=== PATIENT | male | born 1960 | race Caucasian/White ===

== ENCOUNTER 2022-11-20 18:28 | Inpatient (IN) | payer SELFPAY ==
[2022-11-20] VITALS (7 sets, daily range): BP systolic 154–247; BP diastolic 85–126; PULSE 114–134; RESP 4–24; TEMP 37.2–37.7; O2SAT 92–94; BMI 32.8; BMI 31.1
[2022-11-20] MEDS: Ipratropium/Albuterol Sulfate 3 ML AMPUL.NEB INHALATION (19:00)
--- NOTE | 2022-11-20 19:00 | EKG12_ITS ---
Test Reason : DYSRHYTHMIA Blood Pressure : / mmHG Vent. Rate : 121 BPM Atrial Rate : 121 BPM P-R Int : 138 ms QRS Dur : 086 ms QT Int : 312 ms P-R-T Axes : 071 053 059 degrees QTc Int : 443 ms Sinus tachycardia Otherwise normal ECG Confirmed by PETER MARRERO, EJ ([id number]), sports editor PAYAL LEMON ([id number]) on 11/24/2022 11:01:09 AM Referred By: CARSON Confirmed By:RUBY GREEN MD
[2022-11-20] MEDS: Albuterol 2.5 MG/3 ML VIAL.NEB. INHALATION ×2 (19:09→19:20)
[2022-11-20 19:13] LABS: Absolute Lymphocyte Count 0.77 X10^3/uL (0.83-4.51); Absolute Neutrophil Count 4.3 X10^3/uL (2.0-7.7); Basophil# 0.03 X10^3/uL; Basophil% 0.5 % (0-1); Eosinophil# 0.05 X10^3/uL; Eosinophils% 0.9 % (0-5); Hematocrit 43.7 % (40-54); Hemoglobin 14.3 g/dL (13.0-16.5); Lymphocyte # 0.77 X10^3/ul (0.83-4.51); Lymphocyte % 13.4 % (19-41); Mean Corp Hgb Conc 32.7 g/dL (32-36); Mean Corpuscular Hgb 31.2 pg (27.0-32.0); Mean Corpuscular Volume 95.2 fL (80-94); Mean Platelet Vol. 9.6 fl (6.2-12.0); Monocyte# 0.53 X10^3/uL; Monocyte% 9.2 % (0-10); NRBC Flagged by Analyzer 0 % (0-5); Neutrophil # 4.33 X10^3/uL (2.7-7.7); Neutrophil % 75.5 % (47-70); Platelet Count 180 K/mm3 (150-450); RBC Distribution Width CV 13.6 % (11.6-14.6); RBC Distribution Width SD 47.8 fl (35.1-43.9); Red Blood Count 4.59 M/mm3 (4.6-6.2); White Blood Count 5.7 K/mm3 (4.4-11.0)
[2022-11-20] MEDS: MethylPREDNISolone 125 MG/2 ML Vial IV (19:25)
[2022-11-20 19:29] LABS: ALB/GLOB Ratio 1.1 RATIO (0.9-2.4); AST(SGOT) 22 U/L (15-37); Alanine Aminotransfer ALT/SGPT 22 U/L (16-61); Albumin, Serum 3.6 g/dL (3.2-5.0); Alkaline Phosphatase 57 U/L (45-117); Anion Gap 5 (5-15); BUN 10 mg/dL (7-18); BUN/Creat Ratio 11.8 RATIO (10-20); Calcium,Total 8.4 mg/dL (8.5-10.1); Chloride 101 mmol/L (98-107); Creatinine, Serum 0.85 mg/dL (0.70-1.30); EST Glomerular Filtration Rate 98 mL/min (>60); Est Glom Filt Rate - Afr Amer 119 mL/min (>60); Estimated Creatinine Clearance 92.42 ml/min; Globulin 3.2 g/dL (2.2-4.2); Glucose 98 mg/dL (74-106); Potassium 3.9 mmol/L (3.5-5.1); Protein, Total 6.8 g/dL (6.4-8.2); Sodium Level 136 mmol/L (136-145)
[2022-11-20 19:38] LABS: Lactic Acid 0.7 mmol/L (0.4-1.9)
--- NOTE | 2022-11-20 19:38 | RAD_ITS ---
STUDY: XR Chest 2 Views 11/20/2022 7:43 PM REASON FOR EXAM: Male, 62 years old. CHEST PAIN Fever, cough, wheezing, dyspnea COMPARISON: 05/22/2015 TECHNIQUE: XR Chest 2 Views FINDINGS: There is no demonstrated pleural abnormality. Normal heart size. Normal mediastinum. Normal suzan. Prominent appearing increased interstitial lung markings. Normal visualized pulmonary arteries. There is atherosclerotic calcification of the aortic arch with tortuosity. There are diffuse degenerative changes of the visualized thoracic spine. There is degenerative osteoarthritis of the bilateral shoulders. There is no demonstrated abnormality of the visualized soft tissue structures of the upper abdomen. RAD/Chest PA and Lateral IMPRESSION: There are no acute findings. Electronically Signed: Nadeem Jalloh MD at 20:06 EDT ,
--- NOTE | 2022-11-20 19:41 | CPS ---
x2 Albuterol given to pt. in ER as well
--- NOTE | 2022-11-20 21:51 | EDS_ITS ---
HPI History of Present Illness Chief Complaint: Shortness of Breath Detail of Chief Complaint: Shortness of breath, fevers, cough, wheezing and dyspnea on exertion Informant: patient, spouse/S.O. and EMS Onset/Context/Timing Onset: Days Context: gradual Timing: Continuous Quality: Positive for Dyspnea on exertion and Wheezing; Negative for Orthopnea or PND Current Severity: Mild Maximum Severity: Severe Worsened by: Exertion and Coughing Relieved by: Nothing Associated Symptoms cough, rhinorrhea, fever, chills and sweats; Negative for post nasal drip, ear pain, sore throat, clear sputum, white sputum or yellow sputum Chest Pain: Positive for None Narrative Narrative: Patient is a 62-year-old male who is noncompliant with any of his medications. He has a history of hypertension. He has not taken his hypertensive meds for 10 years. Patient stated that he stopped smoking a couple of weeks ago. He does report temperature documented 101.0 ?F. His pulse ox was 90 to 93% on room air. Paramedics for unknown reason and placed him on a nonrebreather. When he did present he did have labored breathing with use of accessory muscles. He appeared in obvious distress. He denies headache, visual, ocular auditory symptoms. He denies drainage from ears or ear pain. He denies chest pain, orthopnea, PND. He does report mild edema of his lower extremities. He denies history of congestive heart failure. He denies abdominal pain, nausea, vomiting or diarrhea. He denies black or maroon-colored stool. PE Risk Factors: Negative for Cancer, OCP + Smoking + > 35, Prior DVT or PE, Recent immobilization, Recent surgery or Recent travel Prior similar symptoms: Yes Recent Illness/Hospitalization: No PFSH PFSH Home Medications NK 11/20/22 [History Last Taken Unknown] Allergy/AdvReac Type Severity Reaction Status Date / Time No Known Allergies Allergy Verified 11/20/22 18:34 Social History (Updated 11/20/22 @ 21:[address] Christiano Scruggs MD) household members: spouse Smoking Status: Former smoker substance use type: does not use ROS ROS ED Constitutional Constitutional ED: Reports chills, fever(s) and sweats; Denies weight loss Eyes Eyes: Denies blurry vision, change in vision or diplopia ENT ENT ED: Reports rhinorrhea; Denies ear pain or sore throat Cardiovascular Cardiovascular: Denies chest pain, orthopnea, palpitations, paroxysmal nocturnal dyspnea or racing heartbeat Respiratory/Chest Respiratory/Chest: Reports cough, dyspnea and dyspnea on exertion; Denies orthopnea or paroxysmal nocturnal dyspnea Gastrointestinal Gastrointestinal: Denies abdominal pain, diarrhea, nausea or vomiting Genitourinary Genitourinary ED: Denies dysuria, hematuria or urinary frequency Musculoskeletal Musculoskeletal: Reports arthralgias and myalgias; Denies back pain or neck pain Integumentary Denies rash Neurologic Neurologic: Reports weakness; Denies headache(s) or paresthesias Psychiatric Psychiatric: Reports anxiety Endocrine Endocrinology: Denies cold intolerance or heat intolerance Hematologic/Lymphatic Hematologic/Lymphatic: Denies easy bleeding or easy bruising EXAM Physical Exam Const Vital Signs: 11/20/22 18:28 11/20/22 18:33 11/20/22 18:41 Temperature 100 F H 100 F H Temperature Source Temporal Temporal Pulse Rate 126 H 125 H Respiratory Rate 21 H 4 L Respiratory Effort Short of Breath Labored Respiratory Depth Normal Respiratory Pattern Tachypnea Blood Pressure 247/126 H 247/126 H Blood Pressure Mean 166 166 Pulse Ox 94 93 Oxygen Delivery Method Room Air Room Air Non-Rebreather 11/20/22 19:00 11/20/22 19:00 11/20/22 20:22 Temperature Temperature Source Pulse Rate 134 H 128 H Respiratory Rate 22 H 24 H 20 H Respiratory Effort Normal Non-Labored Short of Breath Respiratory Depth Shallow Respiratory Pattern Tachypnea Tachypnea Blood Pressure 176/92 H Blood Pressure Mean 120 Pulse Ox 92 93 Oxygen Delivery Method Room Air Room Air Positive well nourished, well developed and obese General Appearance ED: well developed; Negative for pallor Nutritional Appearance: obese HEENT Reports dry mucous membranes HEENT Narrative: Head is atraumatic normocephalic. Ears normal. Nares patent with slight drainage. Posterior pharynx out erythema or exudate. Uvula midline Mouth ED: Yes dry mucous membranes Mouth: dry mucous membranes Eyes PERRL and EOMs intact bilaterally General Eye ED: Negative for pale conjunctiva or scleral icterus Neck no lymphadenopathy, supple, no meningeal signs and no JVD Neck Narrative: Trachea is midline. There is no inspiratory expiratory stridor. Resp No normal respiratory effort and No clear to auscultation bilaterally Resp Narrative: There is increased expiratory phase. There is decreased movement of air. Auscultation: wheezes expiratory wheezes and throughout Cardio regular rhythm, S1 normal heart sound, S2 normal heart sound and no murmurs Rate: tachycardic GI non-tender, non-distended and no masses Auscultation: normoactive bowel sounds Palpation: soft Back/Spine no CVA tenderness Extremity normal to inspection Extremity Narrative: There is noted on his toes. He has palpable DP and PT pulse. There is no asymmetry, swelling, discoloration, leg vein distention, palpable cords or tenderness along the distribution of the deep venous system. General Extremety ED: Negative for tenderness or other findings General Extremity: Negative for other findings Neuro oriented x3, CN's II-XII intact bilaterally and no sensory deficits noted Sensorium / Orientation: alert Psych mental status grossly normal Skin no wounds and skin turgor normal General Skin Exam: Negative for jaundice or pallor MDM MDM MDM Narrative Medical decision making narrative: Differential diagnosis would include viral infection exacerbating COPD, pneumonia, heart failure due to hypertension that is been untreated. Because he has not taken his blood pressure medicine 10 years we will obtain blood work to assess for endorgan dysfunction. His initial blood pressure was 247/126. Without treatment and after treatment for his respiratory distress his blood pressure did improve to 176/92. Enalapril was ordered for the elevated blood pressure however his pressure came down on its own. There is no concern for pulmonary embolus. History is consistent with infectious process. History & Record Review Discussion w/independent historian: EMS personnel, Patient and Significant other Additional record(s) reviewed:: Prior inpatient record (Admitted for exacerbated COPD in 2014. He has not had no other ER visits or admissions.) and Prior ED visit Lab Data Attestation: I reviewed the patient's lab results. Lab results narrative: White count is normal at 5.7 with slight panel is unremarkable. Lactate is unremarkable. Hepatic profile is unremarkable. Labs: Laboratory Results - last 24 hr 11/20/22 11/20/22 11/20/22 18:35 18:35 18:35 WBC 5.7 RBC 4.59 L Hgb 14.3 Hct 43.7 MCV 95.2 H MCH 31.2 MCHC 32.7 RDW Std Deviation 47.8 H RDW Coeff of Adelso 13.6 Plt Count 180 MPV 9.6 Immature Gran % (Auto) 0.500 Neut % (Auto) 75.5 H Lymph % (Auto) 13.4 L Martin % (Auto) 9.2 Eos % (Auto) 0.9 Baso % (Auto) 0.5 Absolute Neuts (auto) 4.3 Absolute Lymphs (auto) 0.77 L Nucleated RBC % 0 Sodium 136 Potassium 3.9 Chloride 101 Carbon Dioxide 30.0 Anion Gap 5 BUN 10 Creatinine 0.85 Estim Creat Clear Calc 92.42 Est GFR (MDRD) Af Amer 119 Est GFR (MDRD) Non-Af 98 BUN/Creatinine Ratio 11.8 Glucose 98 Lactic Acid 0.7 Calcium 8.4 L Total Bilirubin 0.40 AST 22 ALT 22 Alkaline Phosphatase 57 Total Protein 6.8 Albumin 3.6 Globulin 3.2 Albumin/Globulin Ratio 1.1 Radiography Chest X-Ray - ED: 1 View and Read by ED Physician (Single view chest x-ray reveals chronic changes without evidence of infiltrate or effusion. Cardiac silhouette and size unremarkable. Perihilar regions unremarkable. Osseous structures are unremarkable. This was independent reviewed interpreted by me.) Diagnostic Testing: Clinical Impression(s) from Imaging Studies Chest X-Ray 11/20/22 19:38 IMPRESSION: There are no acute findings. Electronically Signed: Nadeem Jalloh MD at 20:06 EDT Reading Location ID and State: [facility] / [place] , Service support , Differential Diagnosis Chest pain/SOB: pulmonary embolism Reason(s) PE less likely: Positive for Other (Presentation of infectious process.), ACS ACS: Positive for EKG without ischemia and history not suggestive of ischemia pain and pneumothorax Reason(s) pneumothorax less likely: Positive for bilateral breath sounds and [employer] withhout PTX Treatment and Re-Evaluation :: Patient was treated with aerosols and steroids. Patient was reassessed at 2155. He is still tachycardic at 125 on the monitor. He still has significant expiratory wheezing with increased extra phase and decreased air movement. He feels much warmer than documented temperature. Temperature was rechecked and is still normal. When he was ambulated his O2 sat decreased to 89%. Will speak with the hospitalist for admission for exacerbation of COPD. Since he has colored sputum we will treat with oral an tibiotics. Discharge Plan Dx/Rx/DC Orders Clinical Impression: Acute exacerbation of chronic obstructive pulmonary disease, HTN (hypertension), Acute bronchospasm, Purulent bronchitis, Sinus tachycardia Disposition Disposition: Acute Care Hospital [facility]
--- NOTE | 2022-11-20 22:50 | HP.PCM.HOS_ITS ---
HPI - General General Date of Admission: 11/20/22 Date of Service: 11/20/22 Chief Complaint: Shortness of breath HPI Narrative PATIENCE RUST, is a 62 M with a significant history of hypertension; tobacco abuse (quit 2 weeks ago) and COPD who presents emergency department with 2-day history of progressively worsening shortness of breath. Patient's shortness of breath is at rest and is increased markedly with mild exertion. Associated with his symptoms is productive cough. Reportedly hiss sputum is thin. He is unable to expectorate much. Further patient has fatigue. He reports wheezes. His home temperature was 100.9 Fahrenheit. He reports chills. Reportedly when patient was ambulated at the ED his oxygen saturation dropped to 89%. [facility] Medical History COPD (chronic obstructive pulmonary disease) HTN (hypertension) Tobacco dependence Medical History no medical history Home Medications NK 11/20/22 [History Last Taken Unknown] Allergy/AdvReac Type Severity Reaction Status Date / Time No Known Allergies Allergy Verified 11/20/22 18:34 Family History Other Diabetes Hypertension Surgical History no surgical history no surgical history Social History household members: spouse Smoking Status: Former smoker substance use type: does not use ROS ROS Narrative Pertinent positives and pertinent negatives as noted in HPI. All other systems were reviewed and are negative Vital Signs Vital Signs Vital Signs: 11/20/22 18:28 11/20/22 18:33 11/20/22 18:41 Temperature 100 F H 100 F H Temperature Source Temporal Temporal Pulse Rate 126 H 125 H Respiratory Rate 21 H 4 L Respiratory Effort Short of Breath Labored Respiratory Depth Normal Respiratory Pattern Tachypnea Blood Pressure 247/126 H 247/126 H Blood Pressure Mean 166 166 Pulse Ox 94 93 Oxygen Delivery Method Room Air Room Air Non-Rebreather 11/20/22 19:00 11/20/22 19:00 11/20/22 20:22 Temperature Temperature Source Pulse Rate 134 H 128 H Respiratory Rate 22 H 24 H 20 H Respiratory Effort Normal Non-Labored Short of Breath Respiratory Depth Shallow Respiratory Pattern Tachypnea Tachypnea Blood Pressure 176/92 H Blood Pressure Mean 120 Pulse Ox 92 93 Oxygen Delivery Method Room Air Room Air 11/20/22 22:06 11/20/22 22:01 Temperature 99.8 F H Temperature Source Oral Pulse Rate 121 H Respiratory Rate 22 H Respiratory Effort Respiratory Depth Respiratory Pattern Blood Pressure 154/110 H Blood Pressure Mean 126 Pulse Ox 93 Oxygen Delivery Method Weight Weight: 100.9 kg Body Mass Index (BMI) 32.8 Physical Exam Narrative Physical exam: General: Well-nourished, well-developed. Head: Normocephalic, atraumatic, no tenderness Eyes: Vision is grossly intact. EOMI ENT, no trauma, moist mucous membranes, no rhinorrhea Neck: Nontender, No thyromegaly. CVS: Regular rate and rhythm. S1-S2 present. No murmur, gallop or rub. Respiratory : Tachypnea; diminished, chest wall nontender Abdomen: Soft, nontender, nondistended, normal bowel sounds, no masses : Deferred Back: Nontender, no CVA tenderness, no midline spinal tenderness, deformities, step-offs Extremities: Nontender full range of motion, no trauma Skin: Normal color, no trauma, abrasions Neuro: Alert, oriented, cranial nerves II through XII grossly intact. Psychiatry: Normal mood. Normal affect. Not depressed. Not anxious. Results Lab / Micro Data Result Diagrams: 11/20/22 18:35 11/20/22 18:35 Labs: Laboratory Results - last 24 hr 11/20/22 18:35: WBC 5.7, RBC 4.59 L, Hgb 14.3, Hct 43.7, MCV 95.2 H, MCH 31.2, MCHC 32.7, RDW Std Deviation 47.8 H, RDW Coeff of Adelso 13.6, Plt Count 180, MPV 9.6, Immature Gran % (Auto) 0.500, Neut % (Auto) 75.5 H, Lymph % (Auto) 13.4 L, Sunflower % (Auto) 9.2, Eos % (Auto) 0.9, Baso % (Auto) 0.5, Absolute Neuts (auto) 4.3, Absolute Lymphs (auto) 0.77 L, Nucleated RBC % 0 11/20/22 18:35: Sodium 136, Potassium 3.9, Chloride 101, Carbon Dioxide 30.0, Anion Gap 5, BUN 10, Creatinine 0.85, Estim Creat Clear Calc 92.42, Est GFR (MDRD) Af Amer 119, Est GFR (MDRD) Non-Af 98, BUN/Creatinine Ratio 11.8, Glucose 98, Calcium 8.4 L, Total Bilirubin 0.40, AST 22, ALT 22, Alkaline Phosphatase 57, Total Protein 6.8, Albumin 3.6, Globulin 3.2, Albumin/Globulin Ratio 1.1 11/20/22 18:35: Lactic Acid 0.7 Radiology Impression Chest X-Ray 11/20/22 19:38 IMPRESSION: There are no acute findings. Electronically Signed: Nadeem Jalloh MD at 20:06 EDT , Assessment & Plan Assessment/Plan (1) HTN (hypertension): (2) Tobacco dependence: (3) COPD (chronic obstructive pulmonary disease) with acute bronchitis: (4) Alcoholism: PLAN: Plan Acute COPD exacerbation with hypoxia Covid antigen and rapid influenza antigen negative Radiologist impression of chest x-ray: No acute findings. CXR independently was visualized and independently interpreted and I agree with radiologist interpretation. Scheduled DuoNeb Albuterol as needed Solu-Medrol ordered. With fever (temperature of 100.9 Fahrenheit at home and Tmax of 100 Fahrenheit at the ED) will start patient on azithromycin. We will check procalcitonin. White count of 7400 Monitor BMP and CBC Oxygen as needed ordered. Titrate. Hypertension Reportedly used to be on blood pressure medicine but stopped taking about 10 years ago due to insurance issues with job change. We will start patient on amlodipine. Trend blood pressures. Tobacco dependence Reportedly quit 2 weeks ago. Counseled Alcoholism Reportedly drinks heavily about 3 days in a week. Patient does not think that he will withdrawal if he does not drink in the hospital. Folic acid and thiamine ordered. CIWA protocol ordered. DVT prophylaxis Subcutaneous Lovenox ordered. Charges/Coding Visit Charges Inpatient E&M: 83634 Init Hosp L3
[2022-11-21] VITALS (12 sets, daily range): BP systolic 135–158; BP diastolic 86–97; PULSE 91–108; RESP 18–21; TEMP 36.7–37.1; O2SAT 82–96
[2022-11-21] MEDS: amLODIPine 10 MG Tablet PO ×2 (00:33→09:40)
[2022-11-21] MEDS: guaiFENesin 1,200 MG Tablet 1200 MG PO ×3 (00:33→20:51)
[2022-11-21] MEDS: Azithromycin 250 MG Tablet 500 MG PO ×2 (00:35→09:40)
[2022-11-21 02:44] LABS: Procalcitonin < 0.04 ng/mL (0.00-0.09)
[2022-11-21 04:36] LABS: Absolute Lymphocyte Count 0.34 X10^3/uL (0.83-4.51); Absolute Neutrophil Count 6.7 X10^3/uL (2.0-7.7); Basophil# 0.01 X10^3/uL; Basophil% 0.1 % (0-1); Hematocrit 43.2 % (40-54); Hemoglobin 14.2 g/dL (13.0-16.5); Lymphocyte # 0.34 X10^3/ul (0.83-4.51); Lymphocyte % 4.6 % (19-41); Mean Corp Hgb Conc 32.9 g/dL (32-36); Mean Corpuscular Hgb 31.6 pg (27.0-32.0); Mean Platelet Vol. 9.2 fl (6.2-12.0); Monocyte# 0.26 X10^3/uL; Monocyte% 3.5 % (0-10); NRBC Flagged by Analyzer 0 % (0-5); Neutrophil # 6.73 X10^3/uL (2.7-7.7); Neutrophil % 91.3 % (47-70); POSITIVE DIFFERENTIAL YES; Platelet Count 175 K/mm3 (150-450); RBC Distribution Width CV 13.6 % (11.6-14.6); RBC Distribution Width SD 48.3 fl (35.1-43.9); White Blood Count 7.4 K/mm3 (4.4-11.0)
[2022-11-21 04:56] LABS: Differential Indicated SCAN CRITERIA MET
[2022-11-21 05:03] LABS: Anion Gap 4 (5-15); BUN 10 mg/dL (7-18); BUN/Creat Ratio 12.1 RATIO (10-20); Calcium,Total 8.2 mg/dL (8.5-10.1); Chloride 101 mmol/L (98-107); Creatinine, Serum 0.82 mg/dL (0.70-1.30); EST Glomerular Filtration Rate 101 mL/min (>60); Est Glom Filt Rate - Afr Amer 122 mL/min (>60); Estimated Creatinine Clearance 98.92 ml/min; Glucose 159 mg/dL (74-106); Potassium 4.2 mmol/L (3.5-5.1); Sodium Level 133 mmol/L (136-145)
[2022-11-21 05:27] LABS: Differential Comment SCANNED
[2022-11-21] MEDS: Ipratropium/Albuterol Sulfate 3 ML AMPUL.NEB INHALATION ×3 (05:39→18:35)
[2022-11-21] MEDS: Folic Acid 1 MG Tablet PO (09:40)
[2022-11-21] MEDS: Enoxaparin 40 MG/0.4 ML Syringe SC (09:40)
[2022-11-21] MEDS: Thiamine Hydrochloride 100 MG Tablet PO (09:40)
--- NOTE | 2022-11-21 13:05 | CASEMGMT ---
RN?CM?PRODUCTION SUPERINTENDENT?CM?to room to meet with patient for initial transition planning/care coordination?assessment.?RN?CM?introduced self and role at [facility].? Pt voices understanding and consents to?assessment?at this time.? Pt resting in bed in no distress at this time.? Pt is A/O at this time and answers all questions appropriately.?? Care providers, pharmacy, and demographics verified/updated at this time. PCP: No PCP and no insurance. Claire MARTINS, made aware. Specialists: none Preferred Pharmacy: [facility] Retail Insurance: none. 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 Prescription Benefit:?none Living Will/HPOA:? Pt does not currently have LW/HCPOA and interested in completing. Claire MARTINS, made aware. Pt made aware, if SW unable to meet w/him prior to discharge, that AD can be completed as an OP w/SW. He voices understanding. LNOK: Pt has 2 daughters, Adriane Nielsen and Chloe Alan. Pt lives w/girlfriend, Marisol. Living Arrangements: Pt lives w/GF, Marisol in mobile home w/5 steps to enter. Pt states he does okay w/the stairs. Pt states he is indep w/ADL's and IADL's. Transportation:?Pt states drives self and states no transportation concerns at this time.?GF also drives. DME: ? Denies using any DME and denies needs.? No home O2. His GF has a pulse ox that he can use. Discussed home O2, should he require it @ d/c. Pt made aware cost of oxygen is approx $150-200/month for oxygen. He states this is affordable to pay [id number]. He does not have a preference of DME co for O2, made aware [employer] is affiliated w/[facility], and he states to use [employer]. HHC/SNF: No hx of either. Pt denies needs and no needs identified. Pt wishes to return home and states has no concerns with going home at time of discharge.? Pt states quit smoking 2 weeks ago. He states he drinks 5-6 beers/day about 3 x's/week. CM?to follow for home oxygen needs and any further discharge planning/needs.? Pt voices no further concerns/needs at this time.? Advised pt to ask for?CM?if any further questions/concerns/needs arise.? Voices understanding. PLAN:??Home. Follow for possible Home O2 @ d/c. Samuel BSN?RN?CM
--- NOTE | 2022-11-21 15:08 | PN.HOSP_ITS ---
Reason for Visit Reason for Visit: Diagnoses Alcohol dependence, uncomplicated (11/20/22) Nicotine dependence, unspecified, uncomplicated (11/20/22) Essential (primary) hypertension (11/20/22) Chronic obstructive pulmonary disease with (acute) lower respiratory infection (11/20/22) Subjective Subjective Patient was seen and examined today, he was admitted last night for exacerbation of COPD, I ordered a respiratory panel on him this morning and it was positive for parainfluenza 3 virus. Patient is currently on 2 L of oxygen via nasal cannula. Objective Data Objective Data Vital Signs: Vital Signs Temp Pulse Resp BP Pulse Ox O2 Del Method O2 Flow Rate 98.1 F 108 H 21 H 158/97 H 24 Nasal Cannula 2 11/21/22 08:39 11/21/22 11:34 11/21/22 11:34 11/21/22 08:39 11/21/22 08:39 11/21/22 08:49 11/21/22 08:49 Oxygen Flow Rate (L/min) 2 Oxygen Delivery Method Nasal Cannula Weight: 98.3 kg Body Mass Index (BMI) 31.1 Lab / Micro Data Result Diagrams: 11/21/22 04:17 11/21/22 04:17 Labs: Laboratory Results - last 24 hr 11/20/22 18:35: WBC 5.7, RBC 4.59 L, Hgb 14.3, Hct 43.7, MCV 95.2 H, MCH 31.2, MCHC 32.7, RDW Std Deviation 47.8 H, RDW Coeff of Adelso 13.6, Plt Count 180, MPV 9.6, Immature Gran % (Auto) 0.500, Neut % (Auto) 75.5 H, Lymph % (Auto) 13.4 L, [place] % (Auto) 9.2, Eos % (Auto) 0.9, Baso % (Auto) 0.5, Absolute Neuts (auto) 4.3, Absolute Lymphs (auto) 0.77 L, Nucleated RBC % 0 11/20/22 18:35: Sodium 136, Potassium 3.9, Chloride 101, Carbon Dioxide 30.0, Anion Gap 5, BUN 10, Creatinine 0.85, Estim Creat Clear Calc 92.42, Est GFR (MDRD) Af Amer 119, Est GFR (MDRD) Non-Af 98, BUN/Creatinine Ratio 11.8, Glucose 98, Calcium 8.4 L, Total Bilirubin 0.40, AST 22, ALT 22, Alkaline Phosphatase 57, Total Protein 6.8, Albumin 3.6, Globulin 3.2, Albumin/Globulin Ratio 1.1 11/20/22 18:35: Lactic Acid 0.7 11/20/22 23:50: Procalcitonin < 0.04 11/21/22 04:17: WBC 7.4, RBC 4.50 L, Hgb 14.2, Hct 43.2, MCV 96.0 H, MCH 31.6, MCHC 32.9, RDW Std Deviation 48.3 H, RDW Coeff of Adelso 13.6, Plt Count 175, MPV 9.2, Immature Gran % (Auto) 0.500, Neut % (Auto) 91.3 H, Lymph % (Auto) 4.6 L, [place] % (Auto) 3.5, Eos % (Auto) 0.0, Baso % (Auto) 0.1, Absolute Neuts (auto) 6.7, Absolute Lymphs (auto) 0.34 L, Nucleated RBC % 0, Differential Comment SCANNED 11/21/22 04:17: Sodium 133 L, Potassium 4.2, Chloride 101, Carbon Dioxide 28.0, Anion Gap 4 L, BUN 10, Creatinine 0.82, Estim Creat Clear Calc 98.92, Est GFR (MDRD) Af Amer 122, Est GFR (MDRD) Non-Af 101, BUN/Creatinine Ratio 12.1, Glucose 159 H, Calcium 8.2 L Micro: Microbiology 11/21/22 11:15 Mucosa - Nose Respiratory Panel (PCR) - Final Parainfluenza 3 11/21/22 01:30 Nasal Secretion SARS-CoV-2 & FLU Antigen (Rapid) - Final Radiography Diagnostic Testing: Radiology Impression Chest X-Ray 11/20/22 19:38 IMPRESSION: There are no acute findings. Electronically Signed: Nadeem Jalloh MD at 20:06 EDT , Physical Exam Const alert, oriented x3, no apparent distress and average body habitus General Appearance: cooperative, well kempt and well developed Orientation / Consciousness: awake, oriented to person, oriented to place and oriented to time HEENT normocephalic, head/scalp atraumatic and moist oral mucous membranes Eyes PERRL, EOMs intact bilaterally and conjunctivae normal Neck supple, no JVD, thyroid normal and no carotid bruits General: trachea midline Resp normal respiratory effort, no retractions and no use of accessory muscles Resp Narrative: Patient has expiratory wheezes scattered over both lungs Auscultation: wheezes throughout; Negative for rales or rhonchi Cardio regular rate, regular rhythm, S1 normal heart sound, S2 normal heart sound, no murmurs, no rub and no gallops GI normal to inspection, nondistended, normoactive bowel sounds, soft to palpation, non-tender and non-distended Extremity no clubbing, cyanosis or edema Skin no rashes or lesions noted General Skin Exam: no breakdown Neuro oriented x3, CN's II-XII intact bilaterally, moves all extremities, no focal motor deficits and no sensory deficits noted Sensorium / Orientation: awake and alert Speech: speech normal Psych affect normal Assessment & Plan Assessment/Plan (1) COPD (chronic obstructive pulmonary disease): PLAN: Plan 1. Exacerbation of chronic obstructive pulmonary disease secondary to parainfluenza 3 virus infection-patient will continue on IV corticosteroids and aerosol treatments #2 acute parainfluenza 3 virus infection with bronchitis-patient will need to be in droplet precautions, I will continue Zithromax 500 mg daily for a minimum of 3 days #3 essential hypertension-patient will remain on amlodipine, I will also add lisinopril to his regimen #4 Chronic alcohol intake-patient admits to anywhere from 4-8 beers 3 times a week, he states he has never been through DTs, I do not think is necessary to continue CIWA's on the patient, I will write for Ativan 4 times a day as needed for anxiety or agitation. I do not feel the patient needs thiamine. #5 noncompliance with outpatient medications-complicates care, medical course, recovery, and prognosis Total clinical time spent by myself addressing the patient's medical issues, reviewing all the data and collaborating with patient's care team: 35-minute Charges/Coding Visit Charges Inpatient E&M: 01147 Subs Hosp L2
[2022-11-21] MEDS: 0.9% Saline Lock 10 ML Syringe IV (15:40)
[2022-11-21] MEDS: Lisinopril 20 MG Tablet PO (17:09)
--- NOTE | 2022-11-21 18:12 | CASEMGMT ---
Social Work SW met with pt to discuss financial resources as pt does not have health insurance. Pt confirms that he used [facility] and is able to afford prescriptions. Pt states he is aware of [facility] but was accepting of additional information. Pt denies any food insecurity, housing or transportation concerns. SW spoke with pt regarding advance directives. Pt accepting of information but did not want to complete at this time. SW left documents and AD rack card for pt to set up outpt appointment. No further needs voiced. WANDA Del Angel
[2022-11-22] VITALS (8 sets, daily range): BP systolic 126–147; BP diastolic 73–81; PULSE 72–111; RESP 18; TEMP 36.2–36.8; O2SAT 85–97
[2022-11-22] MEDS: Ipratropium/Albuterol Sulfate 3 ML AMPUL.NEB INHALATION ×2 (07:50→10:49)
--- NOTE | 2022-11-22 08:57 | DCINST_ITS ---
Discharge Instructions Diet Discharge Diet: No restrictions Activity Discharge Activity: Return to Normal Activity Weight Bearing Status: Full weight bearing Follow Up Care Test Results: Test results from this visit will be discussed in further detail at your follow- up appointment, if applicable. Discharge Plan Admission Admit Date/Time: 11/20/22 22:53 Primary Reason for Your Visit: Exacerbation of COPD, parainfluenza virus infection Attending Provider: Dipak Hardwick Primary Care Provider: Care Physician,No Primary Consulting Providers: Paulino Short Discharge Orders/Prescriptions Prescriptions: New lisinopril 20 mg Tablet 20 mg PO DAILY Qty: 30 0RF amlodipine 10 mg Tablet 10 mg PO DAILY Qty: 30 0RF prednisone 20 mg tablet 20 mg PO DAILY Qty: 7 0RF albuterol sulfate 90 mcg/actuation HFA aerosol inhaler 2 puff inhalation Q6H Qty: 8.5 0RF Rx Instructions: use for the next five days, then use two puffs every six hours as needed for shortness of breath thereafter Referrals / Follow Up: Care Physician,No Primary [Primary Care Provider] - Disposition Disposition (needs filled in before D/C Order can be placed): Home, Self Care
--- NOTE | 2022-11-22 09:07 | DS.PCM_ITS ---
Providers Date of Admission: 11/20/22 Date of Discharge: 11/22/22 Primary Care Physician: Park Primary Care Phys Reason For Visit: ACUTE COPD EXACERBATION Diagnosis Discharge Diagnosis (1) COPD (chronic obstructive pulmonary disease): Status: Chronic Code(s): J44.9 - Chronic obstructive pulmonary disease, unspecified Plan 1. Exacerbation of chronic obstructive pulmonary disease secondary to parainfluenza 3 virus infection-patient will continue on IV corticosteroids and aerosol treatments #2 acute parainfluenza 3 virus infection with bronchitis-patient will need to be in droplet precautions, I will continue Zithromax 500 mg daily for a minimum of 3 days #3 essential hypertension-patient will remain on amlodipine, I will also add lisinopril to his regimen #4 Chronic alcohol intake-patient admits to anywhere from 4-8 beers 3 times a week, he states he has never been through DTs, I do not think is necessary to continue CIWA's on the patient, I will write for Ativan 4 times a day as needed for anxiety or agitation. I do not feel the patient needs thiamine. #5 noncompliance with outpatient medications-complicates care, medical course, recovery, and prognosis Total clinical time spent by myself addressing the patient's medical issues, reviewing all the data and collaborating with patient's care team: 35-minute Medications at Discharge Home Medications albuterol sulfate 90 mcg/actuation aerosol inhaler 2 puff inhalation Q6H shortness of breath or wheezing #8.5 grams 11/22/22 amlodipine 10 mg tablet 10 mg PO DAILY #30 tabs 11/22/22 lisinopril 20 mg tablet 20 mg PO DAILY #30 tabs 11/22/22 prednisone 20 mg tablet 20 mg PO DAILY #7 tabs 11/22/22 Hospital Course Operations None Procedures None Summary of Care Provided Minutes Spent on Discharge: 31 Hospital Course: This 62-year-old white male was seen in the emergency room at [facility] with chief complaint of cough with shortness of breath. Patient was noncompliant with taking outpatient medications and had a history of COPD and hypertension. Work-up in the emergency room included a chest x-ray which showed no evidence of active infiltrate, on examination patient was having marked expiratory wheezing, he required supplemental oxygen via nasal cannula at a low flow rate. Patient was admitted to [place] [id number] for acute exacerbation of COPD, subsequently had a respiratory panel performed which was positive for parainfluenza 3 virus. Patient improved on IV corticosteroids and aerosol treatments, he was also given oral Zithromax during his hospitalization. On 11/22/2022, patient was seen and examined: On examination he appeared in good health and spirits. Vital signs as documented. Skin warm and dry and without overt rashes. Neck without JVD, neck was supple, trachea midline, thyroid was normal. Lungs clear bilaterally, normal air movement was noted. Heart exam nota ble for regular rhythm, normal sounds and absence of murmurs, rubs or gallops. Abdomen unremarkable and without evidence of organomegaly, masses, or abdominal aortic enlargement. Bowel sounds are present, abdomen is not distended. Extremities nonedematous, no cyanosis was noted, no clubbing was noted. Neuro: Cranial nerves II through XII are grossly intact, no focal motor deficits were noted, sensation to light touch and pinprick intact, motor exam 5/5 throughout. Psych: Patient is alert and oriented x3, he does not appear anxious or depressed, he does not appear agitated. Patient appears stable for discharge on 11/22/2022 and did not require home O2. Weight / BMI Weight Weight: 98.3 kg Body Mass Index (BMI) 31.1 ABG / Lab / Microbiology Data Result Diagrams: 11/21/22 04:17 11/21/22 04:17 Microbiology: Microbiology 11/21/22 11:15 Mucosa - Nose Respiratory Panel (PCR) - Final Parainfluenza 3 11/21/22 01:30 Nasal Secretion SARS-CoV-2 & FLU Antigen (Rapid) - Final D/C Instructions Discharge Diet: No restrictions Weight Bearing Status: Full weight bearing Meaningful Use Info Meaningful Use Diagnoses (Choose all that apply): None applicable Discharge Plan Admission Admit Date/Time: 11/20/22 22:53 Primary Reason for Your Visit: Exacerbation of COPD, parainfluenza virus infection Attending Provider: Dipak Hardwick Primary Care Provider: Care Physician,No Primary Consulting Providers: Paulino Short Discharge Orders/Prescriptions Prescriptions: New lisinopril 20 mg Tablet 20 mg PO DAILY Qty: 30 0RF amlodipine 10 mg Tablet 10 mg PO DAILY Qty: 30 0RF prednisone 20 mg tablet 20 mg PO DAILY Qty: 7 0RF albuterol sulfate 90 mcg/actuation HFA aerosol inhaler 2 puff inhalation Q6H Qty: 8.5 0RF Rx Instructions: use for the next five days, then use two puffs every six hours as needed for shortness of breath thereafter Referrals / Follow Up: Care Physician,No Primary [Primary Care Provider] - Disposition Disposition (needs filled in before D/C Order can be placed): Home, Self Care Charges/Coding Visit Charges Inpatient E&M: 23346 Disch Hosp >30min
[2022-11-22] MEDS: Lisinopril 20 MG Tablet PO (09:27)
[2022-11-22] MEDS: Folic Acid 1 MG Tablet PO (09:27)
[2022-11-22] MEDS: amLODIPine 10 MG Tablet PO (09:27)
[2022-11-22] MEDS: guaiFENesin 1,200 MG Tablet 1200 MG PO (09:27)
[2022-11-22] MEDS: Azithromycin 250 MG Tablet 500 MG PO (09:27)
[2022-11-22] MEDS: Enoxaparin 40 MG/0.4 ML Syringe SC (09:28)
== END 2022-11-22 13:58 | disposition home or self-care (01) | DRG 192 ==
LOC: ED 22:02 → MS3 23:07
PROVIDERS: Admitting Provider Hospitalist; Emergency Provider Emergency Medicine; Visit Provider Internal Medicine
DX: J44.0 Chronic obstructive pulmonary disease with (acute) lower respiratory infection (principal); F10.20 Alcohol dependence, uncomplicated; J44.1 Chronic obstructive pulmonary disease with (acute) exacerbation; J20.4 Acute bronchitis due to parainfluenza virus; I10 Essential (primary) hypertension; Y90.9 Presence of alcohol in blood, level not specified; R09.02 Hypoxemia; Z91.148 Patient's other noncompliance with medication regimen for other reason; Z79.899 Other long term (current) drug therapy; Z87.891 Personal history of nicotine dependence
CPT/HCPCS: 36415; 71046; 80048; 80053; 83605; 84145; 85025; 87428; 87633; 93005; 94640; 94668; 99252; 99285; 99406; A4216; G0463

== ENCOUNTER → 2025-06-05 | Outpatient (CLI) | payer SELFPAY ==
[2025-06-05 13:07] LABS: AST(SGOT) 12 U/L (<=37); Alanine Aminotransfer ALT/SGPT 8 U/L (<=46); Albumin, Serum 4.3 g/dL (3.4-4.8); Alkaline Phosphatase 53 U/L (40-129); Anion Gap 12 (5-15); BUN 17 mg/dL (4-19); BUN/Creat Ratio 19.4 RATIO (10-20); Calcium,Total 9.0 mg/dL (7.6-11.0); Carbon Dioxide 21.7 mmol/L (21.0-32.0); Chloride 97 mmol/L (98-108); Cholesterol 161 mg/dL (<=200); Globulin 2.8 g/dL (2.2-4.2); Glucose 120 mg/dL (70-99); Low Density Lipoprotein Calc. 81 mg/dL; Potassium 4.8 mmol/L (3.3-5.1); Triglycerides 107 mg/dL; Very Low Density Lipoprotein 21 mg/dL (5-40); cholesterol:hdl ratio screen 2.74
== END | disposition home or self-care (01) ==
PROVIDERS: PCP Nurse Practitioner Family; Visit Provider Nurse Practitioner Family
DX: I10 Essential (primary) hypertension (principal); Z12.5 Encounter for screening for malignant neoplasm of prostate; Z13.220 Encounter for screening for lipoid disorders
CPT/HCPCS: 36415; 80053; 80061

== ENCOUNTER → 2025-06-06 | Outpatient (CLI) | payer SELFPAY | END | disposition home or self-care (01) | LOC: LABSPEC 11:58 | PROVIDERS: PCP Nurse Practitioner Family; Visit Provider Nurse Practitioner Family | DX: I10 Essential (primary) hypertension (principal); Z13.220 Encounter for screening for lipoid disorders; Z12.5 Encounter for screening for malignant neoplasm of prostate | CPT/HCPCS: 82274 ==

== ENCOUNTER → 2025-06-22 | Outpatient (CLI) | payer SELFPAY ==
[2025-06-22 12:04] LABS: Hematocrit 36.2 % (40-54); Hemoglobin 11.7 g/dL (13.0-16.5); Immature Granulocytes Count 0.020 X10^3/uL (0.0-0.0); Mean Corp Hgb Conc 32.3 g/dL (32-36); Mean Corpuscular Volume 85.2 fL (80-94); Mean Platelet Vol. 8.9 fl (6.2-12.0); NRBC Flagged by Analyzer 0 % (0-5); Platelet Count 386 K/mm3 (150-450); RBC Distribution Width CV 14.5 % (11.6-14.6); RBC Distribution Width SD 45.0 fl (35.1-43.9); Red Blood Count 4.25 M/mm3 (4.6-6.2); White Blood Count 5.5 K/mm3 (4.4-11.0)
== END | disposition home or self-care (01) ==
LOC: VSLAB 09:17
PROVIDERS: PCP Nurse Practitioner Family; Visit Provider Surgery
DX: R58 Hemorrhage, not elsewhere classified (principal)
CPT/HCPCS: 36415; 85025

== ENCOUNTER 2025-06-26 09:31 | Inpatient (IN) | payer MEDICAID, SELFPAY ==
[2025-06-26] VITALS (14 sets, daily range): BP systolic 121–154; BP diastolic 68–81; PULSE 98–119; RESP 14–30; TEMP 36.9–37.3; O2SAT 91–97; BMI 32.5; BMI 31.8
--- NOTE | 2025-06-26 09:41 | EKG12_ITS ---
Test Reason : SOB/CP Blood Pressure : */* mmHG Vent. Rate : 113 BPM Atrial Rate : 113 BPM P-R Int : 164 ms QRS Dur : 86 ms QT Int : 312 ms P-R-T Axes : 61 25 52 degrees QTcB Int : 427 ms Sinus tachycardia Nonspecific ST abnormality Abnormal ECG Confirmed by Apolinar Meadows ([id number]), assignment editor OG BALDWIN ([id number]) on 06/27/2025 8:54:56 AM Referred By: ZANE/BREEZY Confirmed By: Apolinar Meadows
--- NOTE | 2025-06-26 10:28 | CT_ITS ---
PROCEDURE: CTA CHEST W/WO CONTRAST 06/26/2025 REASON FOR EXAM: RULE OUT PE TECHNIQUE: Procedure Code: [id number] Modality: CT Procedure: CTA CHEST W/WO CONTRAST Multiplanar Sagittal and Coronal images were obtained. 3D post processing was performed CONTRAST: Isovue 370 VOLUME: 100 mL One or more dose reduction techniques were used (e.g., Automated exposure control, adjustment of the mA and/or kV according to patient size, use of iterative reconstruction technique). RADIATION DOSE SUMMARY: CTDlvol: 13 mGy DLP: 541.35 mGycm COMPARISON: None FINDINGS: Hardware: None Lymph nodes: Small benign-appearing mediastinal lymph nodes. Heart: The heart is nonenlarged. No evidence of pericardial effusion. Coronary artery calcification. Thoracic Aorta: No thoracic aortic aneurysm or dissection. Pulmonary Vessels: No evidence of pulmonary embolism. Most Proximal Level of Embolus (if embolus present): Lungs and Airways: No focal infiltrate. Mild degree of scarring at the lung bases with subpleural blebs and interstitial scarring. Pleura: No pleural effusion. Upper Abdomen: There is a 6.4 cm x 6.9 cm by 5.5 cm mass in the left upper quadrant superior to the left kidney with dense calcification in its peripheral aspect. This may represent a large left partially calcified adrenal mass. This is separate from the kidney. Bones: Degenerative changes of the thoracic spine. CT/CTA Chest W/WO Contrast IMPRESSION: No evidence of pulmonary embolism. Scarring at the lung bases. 6.4 cm 6.9 cm 5.5 cm mass in the left upper quadrant superior to the left kidne y with dense peripheral calcifications. This may represent a partially calcified left adrenal mass. This is separate from the l eft kidney. Reading Location: [id number]
--- NOTE | 2025-06-26 10:30 | EDS_ITS ---
HPI History of Present Illness Chief Complaint: Shortness of Breath Narrative Narrative: Patient is a 64-year-old male presenting to the emergency department for dyspnea for the past 2 weeks. Patient has a past medical history of COPD and hypertension. 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 States that has been using his nebulizers and Trelegy as prescribed and they help for a little bit but then he will develop shortness of breath again. States that on he was at a primary care doctor office visit and was noted to be febrile. States he took Motrin this morning around 5 or 6 AM. He states he also had an episode of chest pain this morning that was midsternal that is no longer present. He denies any history of DVT or PE. Denies any use of oral anticoagulation. Denies any recent travel, hospitalizations or surgeries. Denies any lower extremity edema. Stopped smoking 3 years ago. Does not wear any oxygen at baseline. [facility] Medical History Sinus tachycardia Purulent bronchitis Acute bronchospasm Acute exacerbation of chronic obstructive pulmonary disease COPD (chronic obstructive pulmonary disease) HTN (hypertension) Tobacco dependence COPD (chronic obstructive pulmonary disease) with acute bronchitis Home Medications ?Medication ?Instructions ?Recorded ?Last Taken ?Type albuterol sulfate 90 mcg/actuation 2 puff inhalation Q 6H shortness of 11/22/22 06/25/25 Rx aerosol inhaler breath or wheezing #8.5 gram s amlodipine 10 mg tablet 10 mg PO DAILY BLOOD PRESSUR E #30 11/22/22 06/26/25 Rx tabs lisinopril 20 mg tablet 20 mg PO DAILY BLOOD PRESSUR E #30 11/22/22 06/26/25 Rx tabs fluticasone fur. 100 mcg-umeclid 1 inh inhalation Q24H SOB 06/22/25 Unknown History 62.5 mcg-vilant 25 mcg inhalat.powder (Trelegy Ellipta) aspirin 81 mg tablet,delayed 81 mg PO DAILY HEART 11/1506/26/25 History release (Adult Low Dose Aspirin) Allergy/AdvReac Type Severity Reaction Status Date / Time No Known Allergies Allergy Verified 06/26/25 09:32 Family History Other Diabetes Hypertension Social History household members: spouse Smoking Status: Former smoker substance use type: does not use ROS ROS ED ROS Narrative see HPI EXAM Physical Exam Narrative Exam Narrative: Vital signs: Reviewed General: Alert and orientedx3. No acute distress HEENT: Head is normocephalic and atraumatic, sinuses nontender, pupils equal round and reactive. Nares are patent. Oropharynx and throat exams normal. Neck: Supple without lymphadenopathy nontender Cardiovascular: Tachycardic rate and rhythm, no murmurs. No rubs or gallops. Normal S1 and S2 Respiratory: Expiratory wheezing in all lung rodriguez. No rhonchi or rales heard. Abdominal: Soft and nontender. Normal bowel sounds. No guarding or rebound. Nonsurgical abdomen Extremities: No lower extremity edema noted. No tenderness. No bruising. Normal range of motion. Normal sensation. Skin: No rash or redness. Neurological: Cranial nerves II through XII are grossly intact. Normal strength and sensation. Normal cerebellar function The rest of the physical exam is unremarkable Const Vital Signs: 06/26/25 09:33 06/26/25 10:50 06/26/25 10:51 Temperature 98.7 F Temperature Source Oral Pulse Rate 119 H 110 H Respiratory Rate 24 H 15 Respiratory Effort Short of Breath Respiratory Depth Normal Respiratory Pattern Tachypnea Blood Pressure 154/81 H Blood Pressure Mean 105 Pulse Ox 93 Oxygen Delivery Method Room Air Room Air 06/26/25 10:59 06/26/25 12:00 06/26/25 12:41 Temperature 98.9 F 98.5 F Temperature Source Oral Oral Pulse Rate 112 H 103 H 105 H Respiratory Rate 14 30 H 14 Respiratory Effort Respiratory Depth Respiratory Pattern Blood Pressure 149/78 H 136/80 H Blood Pressure Mean 101 98 Pulse Ox 97 95 Oxygen Delivery Method Room Air Room Air 06/26/25 13:00 Temperature 98.5 F Temperature Source Oral Pulse Rate 108 H Respiratory Rate 27 H Respiratory Effort Respiratory Depth Respiratory Pattern Blood Pressure 142/77 H Blood Pressure Mean 98 Pulse Ox 96 Oxygen Delivery Method Room Air MDM MDM MDM Narrative Medical decision making narrative: Patient is a 64-year-old male presenting to the emergency department for dyspnea for the past 2 weeks. Patient was seen and examined. Patient arrives tachycardic at 119 and tachypneic at 24. He saturating 93% on room air. He is afebrile however he did take Motrin this morning at 5 or 6 AM. Stable BP. Differential includes but is not limited to: PE, ACS, pneumonia, COPD exacerbation, new onset CHF, viral illness Patient was given 3 DuoNeb breathing treatments and Solu-Medrol for possible COPD exacerbation. Viral swab is negative. CBC with significant leukocytosis of 24.7. No recent steroid use. Hemoglobin of 11.2. Patient was started on Rocephin and azithromycin for likely respiratory source of the leukocytosis. Lactate within normal limits. BMP with very mild hyponatremia 132 otherwise no significant abnormalities. BNP within normal limits. Troponin and reflex within normal limits. CTA of the chest shows no evidence of pulmonary embolism. No opacity concerning for pneumonia. After 1 L of fluids patient continued to be tachycardic in the low 100s. Patient ambulated with pulse ox with no nasal cannula and dropped to 85%. Discussed admission with the patient and at bedside. They are agreeable. Patient admitted to hospitalist for further management of COPD exacerbation. Clinical impression Acute hypoxic respiratory failure COPD exacerbation History & Record Review Discussion w/independent historian: Patient and Significant other Lab Data Attestation: I reviewed the patient's lab results. Labs: Laboratory Results - last 24 hr 06/26/25 06/26/25 06/26/25 09:51 10:38 12:21 WBC 24.7 H RBC 4.01 L Hgb 11.2 L Hct 34.3 L MCV 85.5 MCH 27.9 MCHC 32.7 RDW Std Deviation 46.5 H RDW Coeff of Adelso 14.7 H Plt Count 375 MPV 9.1 Immature Gran % (Auto) 0.500 Neut % (Auto) 95.3 H Lymph % (Auto) 1.5 L [place] % (Auto) 2.4 Eos % (Auto) 0.0 Baso % (Auto) 0.3 Absolute Neuts (auto) 23.5 H Absolute Lymphs (auto) 0.36 L Nucleated RBC % 0 Differential Comment COMMENT Sodium 132 L Potassium 4.7 Chloride 99 Carbon Dioxide 23.5 Anion Gap 10 BUN 13 Creatinine 0.79 Estim Creat Clear Calc 116.54 Est GFR (MDRD) Non-Af 101 BUN/Creatinine Ratio 16.0 Glucose 130 H Lactic Acid 1.6 Calcium 8.7 Iron 21 L TIBC 443 Iron Saturation 4.6 L Unsaturated IBC 422 Ferritin 24 L Troponin T High Sens 8 Troponin T Hi Sens 2 Hr 8 NT pro BNP II 45 Vitamin B12 608 Radiography Diagnostic Testing: Clinical Impression(s) from Imaging Studies Chest CTA 06/26/25 10:28 IMPRESSION: No evidence of pulmonary embolism. Scarring at the lung bases. 6.4 cm 6.9 cm 5.5 cm mass in the left upper quadrant superior to the left kidney with dense peripheral calcifications. This may represent a partially calcified left adrenal mass. This is separate from the left kidney. Reading Location: [id number] Discharge Plan Disposition Disposition: Acute Care Hospital [facility] Discharge Date/Time: 06/26/25 14:23
[2025-06-26 10:42] LABS: Differential Indicated SCAN CRITERIA MET; Hematocrit 34.3 % (40-54); Hemoglobin 11.2 g/dL (13.0-16.5); Immature Granulocytes Count 0.130 X10^3/uL (0.0-0.0); Mean Corp Hgb Conc 32.7 g/dL (32-36); Mean Corpuscular Volume 85.5 fL (80-94); Mean Platelet Vol. 9.1 fl (6.2-12.0); NRBC Flagged by Analyzer 0 % (0-5); POSITIVE DIFFERENTIAL YES; Platelet Count 375 K/mm3 (150-450); RBC Distribution Width CV 14.7 % (11.6-14.6); RBC Distribution Width SD 46.5 fl (35.1-43.9); Red Blood Count 4.01 M/mm3 (4.6-6.2); White Blood Count 24.7 K/mm3 (4.4-11.0)
[2025-06-26] MEDS: 0.9% Normal Saline (1000mL) 1,000 ML 999 ML IV (10:56)
[2025-06-26 11:14] LABS: Anion Gap 10 (5-15); BUN 13 mg/dL (4-19); BUN/Creat Ratio 16.0 RATIO (10-20); Calcium,Total 8.7 mg/dL (7.6-11.0); Carbon Dioxide 23.5 mmol/L (21.0-32.0); Chloride 99 mmol/L (98-108); Estimated Creatinine Clearance 116.54 ml/min (50-250); Glucose 130 mg/dL (70-99); Potassium 4.7 mmol/L (3.3-5.1); Pro- Brain NATRIURETIC PEPTIDE 45 pg/mL (<=900); Troponin T High Sensitivity 8 ng/L (<=22)
[2025-06-26 11:40] LABS: Ferritin 24 ng/mL (37-417)
[2025-06-26 11:56] LABS: Iron 21 ug/dL (65-175); Iron Binding Capacity,Total 443 ug/dL (250-450); Iron Binding Capacity,Unsat 422 ug/dL (228-428)
[2025-06-26] MEDS: Azithromycin 500 MG in 0.9% Normal Saline (250mL Bag) 250 ML 250 MG IV (12:20)
[2025-06-26 12:45] LABS: Troponin T High Sens 2 HR 8 ng/L (<=22)
[2025-06-26 14:47] LABS: Vitamin B12 608 pg/mL (180-914)
[2025-06-26] MEDS: Sodium Ferric Gluconat/Sucrose 250 MG in 0.9% Normal Saline (250mL Bag) 250 ML 135 MG IV (15:53)
[2025-06-26 16:01] LABS: Troponin T High Sens 4 HR 7 ng/L (<=22)
[2025-06-26 16:19] LABS: FOLATES,SERUM (FOLIC ACID) 10.00 ng/mL (4.60-34.80)
--- NOTE | 2025-06-26 18:38 | HP.PCM.HOS_ITS ---
HPI - General General Date of Admission: 06/26/25 HPI Narrative PATIENCE RUST, is a 64 M who presents to the hospital with shortness of breath. After arrival he was found to also be hypoxic and was placed on 2 L nasal cannula. He does have a history of tobacco abuse so there is concern for COPD exacerbation. He was denying any chest pain and EKG was nonischemic with negative troponins and a proBNP of 45. Chest x-ray was unremarkable but he did have a leukocytosis so there is concern for possible infection but there is no obvious source as he was not complaining of any dysuria or abdominal pain. Because of his shortness of breath a CTA of the chest was performed which was negative for PE but it did show an odd calcified lesion in his left upper quadrant that was freestanding and not attached to any organ there is concern for possible left adrenal mass but he has had this since 2013 on x-ray it does not appear to have changed. Of note he is severely iron deficient and his primary care doctor had ordered a Hemoccult about a month ago which was positive. They are in the process of getting him outpatient evaluation however today is hemoglobin in the ER is 11.2. PFSH Medical History Sinus tachycardia Purulent bronchitis Acute bronchospasm Acute exacerbation of chronic obstructive pulmonary disease COPD (chronic obstructive pulmonary disease) HTN (hypertension) Tobacco dependence COPD (chronic obstructive pulmonary disease) with acute bronchitis Home Medications ?Medication ?Instructions ?Recorded ?Last Taken ?Type albuterol sulfate 90 mcg/actuation 2 puff inhalation Q 6H shortness of 11/22/22 06/25/25 Rx aerosol inhaler breath or wheezing #8.5 gram s amlodipine 10 mg tablet 10 mg PO DAILY BLOOD PRESSUR E #30 11/22/22 06/26/25 Rx tabs lisinopril 20 mg tablet 20 mg PO DAILY BLOOD PRESSUR E #30 11/22/22 06/26/25 Rx tabs fluticasone fur. 100 mcg-umeclid 1 inh inhalation Q24H SOB 06/22/25 Unknown History 62.5 mcg-vilant 25 mcg inhalat.powder (Trelegy Ellipta) aspirin 81 mg tablet,delayed 81 mg PO DAILY HEART 11/1506/26/25 History release (Adult Low Dose Aspirin) Allergy/AdvReac Type Severity Reaction Status Date / Time No Known Allergies Allergy Verified 06/26/25 09:32 Family History Other Diabetes Hypertension no surgical history Social History household members: spouse Smoking Status: Former smoker substance use type: does not use ROS Constitutional Constitutional: Denies chills, fatigue, fever(s) or malaise Eyes Eyes: Denies blurry vision ENT HEENT: Denies headache(s) or nasal discharge Cardiovascular Cardiovascular: Denies chest pain, dyspnea on exertion or syncope Respiratory/Chest Respiratory/Chest: Reports shortness of breath with exertion; Denies cough or shortness of breath at rest Gastrointestinal Gastrointestinal: Denies constipation, diarrhea, nausea or vomiting Genitourinary Genitourinary: Denies dysuria Neurologic Neurologic: Denies focal weakness, numbness or tremor(s) Psychiatric Psychiatric: Denies anxiety or depression Vital Signs Vital Signs Vital Signs: 06/26/25 09:33 06/26/25 10:50 06/26/25 10:51 Temperature 98.7 F Temperature Source Oral Pulse Rate 119 H 110 H Respiratory Rate 24 H 15 Respiratory Effort Short of Breath Respiratory Depth Normal Respiratory Pattern Tachypnea Blood Pressure 154/81 H Blood Pressure Mean 105 Blood Pressure Source Blood Pressure Position Blood Pressure Location Pulse Ox 93 Oxygen Delivery Method Room Air Room Air 06/26/25 10:59 06/26/25 12:00 06/26/25 12:41 Temperature 98.9 F 98.5 F Temperature Source Oral Oral Pulse Rate 112 H 103 H 105 H Respiratory Rate 14 30 H 14 Respiratory Effort Respiratory Depth Respiratory Pattern Blood Pressure 149/78 H 136/80 H Blood Pressure Mean 101 98 Blood Pressure Source Blood Pressure Position Blood Pressure Location Pulse Ox 97 95 Oxygen Delivery Method Room Air Room Air 06/26/25 13:00 06/26/25 14:00 06/26/25 14:12 Temperature 98.5 F 98.9 F 98.9 F Temperature Source Oral Oral Pulse Rate 108 H 98 98 Respiratory Rate 27 H 26 H 26 H Respiratory Effort Respiratory Depth Respiratory Pattern Blood Pressure 142/77 H 137/77 H 137/77 H Blood Pressure Mean 98 97 97 Blood Pressure Source Blood Pressure Position Blood Pressure Location Pulse Ox 96 97 97 Oxygen Delivery Method Room Air Room Air 06/26/25 14:45 06/26/25 15:09 06/26/25 18:21 Temperature 99.1 F 98.6 F Temperature Source Oral Oral Pulse Rate 99 112 H Respiratory Rate 17 19 H Respiratory Effort Normal Non-Labored Respiratory Depth Normal Respiratory Pattern Normal Blood Pressure 129/70 H 143/74 H Blood Pressure Mean 89 97 Blood Pressure Source Monitor Monitor Blood Pressure Position Semi-Fowlers Semi-Fowlers Blood Pressure Location Right Arm Right Arm Pulse Ox 94 96 Oxygen Delivery Method Room Air Room Air Room Air Weight Weight: 222 lb 0.088 oz Body Mass Index (BMI) 31.8 Physical Exam Narrative General: Alert, Oriented x3, Cooperative, No apparent distress HEENT: Atraumatic, PERRLA, EOMI, Normocephalic Oral: Moist Mucosa Neck: Supple, No JVD Lungs: Diminished, Normal air movement, No rhonchi, No wheeze, No rales Cardiovascular: Regular rate, Regular Rhythm, Normal S1, Normal S2, No murmurs Abdomen: Soft, Non Tender, Non-Distended, No Hepato-splenomegaly Extremities: No edema, Capillary Refill Less than 3 Seconds Skin: No rashes, No breakdown Musculoskeletal: No Tenderness to Palpation of Joints or Extremities Neurological: No focal neurological deficits, moves all extremities Psych/Mental Status: Normal Affect, Appropriate Results Lab / Micro Data 06/27/25 05:20 06/27/25 05:20 Labs: Laboratory Results - last 24 hr 06/26/25 09:51: WBC 24.7 H, RBC 4.01 L, Hgb 11.2 L, Hct 34.3 L, MCV 85.5, MCH 27.9, MCHC 32.7, RDW Std Deviation 46.5 H, RDW Coeff of Adelso 14.7 H, Plt Count 375, MPV 9.1, Immature Gran % (Auto) 0.500, Neut % (Auto) 95.3 H, Lymph % (Auto) 1.5 L, [place] % (Auto) 2.4, Eos % (Auto) 0.0, Baso % (Auto) 0.3, Absolute Neuts (auto) 23.5 H, Absolute Lymphs (auto) 0.36 L, Nucleated RBC % 0, Differential Comment COMMENT, Sodium 132 L, Potassium 4.7, Chloride 99, Carbon Dioxide 23.5, Anion Gap 10, BUN 13, Creatinine 0.79, Estim Creat Clear Calc 116.54, Est GFR (MDRD) Non-Af 101, BUN/Creatinine Ratio 16.0, Glucose 130 H, Calcium 8.7, Iron 21 L, TIBC 443, Iron Saturation 4.6 L, Unsaturated IBC 422, Ferritin 24 L, Troponin T High Sens 8, NT pro BNP II 45 06/26/25 10:38: Lactic Acid 1.6 06/26/25 12:21: Troponin T Hi Sens 2 Hr 8, Vitamin B12 608 06/26/25 15:24: Troponin T Hi Sens 4Hr 7, Serum Folate 10.00 Micro: Microbiology 06/26/25 10:40 Mucosa - Nose SARS-CoV-2, Influenza & RSV (PCR) - Final Imaging Radiology Impression Chest CTA 06/26/25 10:28 IMPRESSION: No evidence of pulmonary embolism. Scarring at the lung bases. 6.4 cm 6.9 cm 5.5 cm mass in the left upper quadrant superior to the left kidney with dense peripheral calcifications. This may represent a partially calcified left adrenal mass. This is separate from the left kidney. Reading Location: [id number] Assessment & Plan Assessment/Plan (1) COPD (chronic obstructive pulmonary disease): (2) SOB (shortness of breath): PLAN: Plan 1. Shortness of breath secondary to possible COPD exacerbation versus anemia ? His anemia is iron deficient though given his Hemoccult it is likely iron deficient due to slow bleed, he is not microcytic so we will obtain a vitamin B12 ? Continue with an iron infusion ? Will continue with steroids ? He does have a leukocytosis but no obvious infection, he was given a dose of Rocephin and azithromycin in the ER, we will discontinue on admission ? Continue with breathing treatments ? Will recheck in the morning his hemoglobin if it continues to drop may need to have gastroenterology evaluate for possible colonoscopy, in the meantime we will provide a dose of IV iron today 2. Essential HTN ? Blood pressures are stable, he is on Norvasc and lisinopril ? Will continue and monitor ? Given the negative troponins and a nonischemic EKG not overly concerned for cardiac source of his shortness of breath at this time, will reevaluate him in the morning DVT: SCDs Charges/Coding Visit Charges Inpatient E&M: 77859 Init Hosp L2
[2025-06-26] MEDS: 0.9% Saline Lock 10 ML Syringe IV (21:31)
[2025-06-27] VITALS (12 sets, daily range): BP systolic 119–177; BP diastolic 68–81; PULSE 75–110; RESP 14–22; TEMP 36.4–36.8; O2SAT 91–97; BMI 31.8
[2025-06-27] MEDS: 0.9% Saline Lock 10 ML Syringe IV (05:08)
[2025-06-27 06:03] LABS: Hematocrit 33.1 % (40-54); Hemoglobin 10.3 g/dL (13.0-16.5); Immature Granulocytes Count 0.170 X10^3/uL (0.0-0.0); Mean Corp Hgb Conc 31.1 g/dL (32-36); Mean Corpuscular Volume 86.6 fL (80-94); Mean Platelet Vol. 9.1 fl (6.2-12.0); NRBC Flagged by Analyzer 0 % (0-5); POSITIVE DIFFERENTIAL YES; Platelet Count 389 K/mm3 (150-450); RBC Distribution Width CV 15.2 % (11.6-14.6); RBC Distribution Width SD 48.3 fl (35.1-43.9); Red Blood Count 3.82 M/mm3 (4.6-6.2); White Blood Count 22.8 K/mm3 (4.4-11.0)
[2025-06-27 06:12] LABS: Differential Indicated SCAN CRITERIA MET
[2025-06-27 06:28] LABS: Anion Gap 9 (5-15); BUN 11 mg/dL (4-19); BUN/Creat Ratio 15.5 RATIO (10-20); Calcium,Total 8.5 mg/dL (7.6-11.0); Carbon Dioxide 23.8 mmol/L (21.0-32.0); Chloride 100 mmol/L (98-108); Estimated Creatinine Clearance 126.51 ml/min (50-250); Glucose 157 mg/dL (70-99); Potassium 4.2 mmol/L (3.3-5.1)
[2025-06-27 06:41] LABS: Differential Comment SCANNED
[2025-06-27 06:42] LABS: Acanthocytes RARE; Anisocytosis 1+; Polychromasia 1+; Target Cells RARE
[2025-06-27] MEDS: Sodium Ferric Gluconat/Sucrose 250 MG in 0.9% Normal Saline (250mL Bag) 250 ML 135 MG IV (08:58)
--- NOTE | 2025-06-27 10:45 | EKG12_ITS ---
Test Reason : CP Blood Pressure : */* mmHG Vent. Rate : 103 BPM Atrial Rate : 103 BPM P-R Int : 156 ms QRS Dur : 92 ms QT Int : 320 ms P-R-T Axes : 61 18 32 degrees QTcB Int : 419 ms Sinus tachycardia Otherwise normal ECG When compared with ECG of 27-Jun-2025 10:45, MANUAL COMPARISON REQUIRED DATA IS UNCONFIRMED Confirmed by Apolinar Meadows ([id number]), editor managing director OG BALDWIN ([id number]) on 06/28/2025 12:44:08 PM Referred By: Confirmed By: Apolinar Meadows
--- NOTE | 2025-06-27 10:58 | PN.HOSP_ITS ---
Subjective Subjective Doing well, states that his shortness of breath is significantly improved and he was able to ambulate around the unit Objective Data Objective Data Vital Signs: Vital Signs Temp Pulse Resp BP Pulse Ox O2 Del Method 98.1 F 102 H 17 153/69 H 91 Room Air 06/27/25 10:45 06/27/25 10:45 06/27/25 10:45 06/27/25 10:45 06/27/25 10:45 06/27/25 10:45 Oxygen Delivery Method Room Air Weight: 222 lb 0.088 oz Body Mass Index (BMI) 31.8 Intake & Output: Intake and Output for Last 24 Hours 06/26/25 06/27/25 06/28/25 03:59 03:59 03:59 Intake Total 2049 / 2049 Output Total 750 / 750 375 / 375 Balance 1300 / 1300 -375 / -375 Lab / Micro Data 06/27/25 05:20 06/27/25 05:20 Labs: Laboratory Results - last 24 hr 06/26/25 09:51: Differential Comment COMMENT, Sodium 132 L, Potassium 4.7, Chloride 99, Carbon Dioxide 23.5, Anion Gap 10, BUN 13, Creatinine 0.79, Estim Creat Clear Calc 116.54, Est GFR (MDRD) Non-Af 101, BUN/Creatinine Ratio 16.0, G lucose 130 H, Calcium 8.7, Iron 21 L, TIBC 443, Iron Saturation 4.6 L, Unsaturated IBC 422, Ferritin 24 L, Troponin T High Sens 8, NT pro BNP II 45 06/26/25 10:38: Lactic Acid 1.6 06/26/25 12:21: Troponin T Hi Sens 2 Hr 8, Vitamin B12 608 06/26/25 15:24: Troponin T Hi Sens 4Hr 7, Serum Folate 10.00 06/27/25 05:20: WBC 22.8 H, RBC 3.82 L, Hgb 10.3 L, Hct 33.1 L, MCV 86.6, MCH 27.0, MCHC 31.1 L, RDW Std Deviation 48.3 H, RDW Coeff of Adelso 15.2 H, Plt Count 389, MPV 9.1, Immature Gran % (Auto) 0.700, Neut % (Auto) 96.3 H, Lymph % (Auto) 1.7 L, [place] % (Auto) 1.1, Eos % (Auto) 0.0, Baso % (Auto) 0.2, Absolute Neuts (auto) 21.9 H, Absolute Lymphs (auto) 0.39 L, Nucleated RBC % 0, Differential Comment SCANNED, Platelet Estimate ADEQUATE, Polychromasia 1+, Anisocytosis 1+, Target Cells RARE, Acanthocytes (Spur) RARE, Sodium 133, Potassium 4.2, Chloride 100, Carbon Dioxide 23.8, Anion Gap 9, BUN 11, Creatinine 0.72, Estim Creat Clear Calc 126.51, Est GFR (MDRD) Non-Af 103, BUN/Creatinine Ratio 15.5, Glucose 157 H, Calcium 8.5 Micro: Microbiology 06/26/25 15:55 Mucosa - Nasopharyngeal Respiratory Panel (PCR) - Final 06/26/25 10:40 Mucosa - Nose SARS-CoV-2, Influenza & RSV (PCR) - Final Radiography Diagnostic Testing: Radiology Impression Chest CTA 06/26/25 10:28 IMPRESSION: No evidence of pulmonary embolism. Scarring at the lung bases. 6.4 cm 6.9 cm 5.5 cm mass in the left upper quadrant superior to the left kidney with dense peripheral calcifications. This may represent a partially calcified left adrenal mass. This is separate from the left kidney. Reading Location: [facility] Physical Exam Narrative General: Alert, Oriented x3, Cooperative, No apparent distress HEENT: Atraumatic, PERRLA, EOMI, Normocephalic Oral: Moist Mucosa Neck: Supple, No JVD Lungs: Diminished, Normal air movement, No rhonchi, No wheeze, No rales Cardiovascular: Regular rate, Regular Rhythm, Normal S1, Normal S2, No murmurs Abdomen: Soft, Non Tender, Non-Distended, No Hepato-splenomegaly Extremities: No edema, Capillary Refill Less than 3 Seconds Skin: No rashes, No breakdown Musculoskeletal: No Tenderness to Palpation of Joints or Extremities Neurological: No focal neurological deficits, moves all extremities Psych/Mental Status: Normal Affect, Appropriate Assessment & Plan Assessment/Plan (1) COPD (chronic obstructive pulmonary disease): (2) SOB (shortness of breath): PLAN: Plan 1. Shortness of breath secondary to possible COPD exacerbation versus anemia ? His anemia is iron deficient though given his Hemoccult it is likely iron deficient due to slow bleed, B12 is normal ? Will provide another iron infusion today as his hemoglobin has continued to drop to 10.3 ? Given the lack of hypoxia currently and the lack of symptoms we will discontinue his steroids ? Leukocytosis is improving but still unclear source, blood cultures are pending ? Continue with breathing treatments ? Discussed the case with gastroenterology who is planning for colonoscopy tomorrow will provide him a clear liquid diet at this time 2. Essential HTN ? Blood pressures are stable, he is on Norvasc and lisinopril ? Will continue and monitor ? Given the negative troponins and a nonischemic EKG not overly concerned for cardiac source of his shortness of breath at this time ? Continues to deny any chest pain DVT: SCDs Charges/Coding Visit Charges Inpatient E&M: 21930 Subs Hosp L2
--- NOTE | 2025-06-27 11:20 | CASEMGMT ---
RN CM Face to Face with patient for initial transition planning/care coordination assessment. RN CM introduced self and role at [facility]. Patient lying in bed, alert and oriented. Patient willing to participate in assessment and is able to answer all questions appropriately. Care providers, pharmacy, and demographics verified. Strata:1 PCP: Sherry Specialists: none Preferred Pharmacy: [facility] Insurance: self pay Prescription Benefit: none Living Will/HPOA: none LNOK: sister, connie Living Arrangements: Patient lives with connie in a mobile home with 6 steps and railing to enter the home. Patient is independent at home. Transportation: self, fiance DME/HHC: Patient has walker, nebulizer, and pulse ox at home. Will monitor for home oxygen at discharge. No previous HHC or SNF. Patient wishes to discharge home, denies need for home health at this time. Patient states he has no further needs or concerns at this time. CM to follow for discharge planning needs that may arise. Disposition Plan: Patient to discharge home with family support and follow-up plans in place. Will monitor for home oxygen. Yamilet DENISE, RN, CM
--- NOTE | 2025-06-27 13:35 | EKG12_ITS ---
Test Reason : CP Blood Pressure : */* mmHG Vent. Rate : 88 BPM Atrial Rate : 88 BPM P-R Int : 160 ms QRS Dur : 92 ms QT Int : 340 ms P-R-T Axes : 71 26 8 degrees QTcB Int : 411 ms Normal sinus rhythm Normal ECG When compared with ECG of 26-Jun-2025 09:41, No significant change was found Confirmed by Apolinar Meadows ([id number]), metropolitan editor OG BALDWIN ([id number]) on 06/28/2025 7:18:15 AM Referred By: Confirmed By: Apolinar Meadows
--- NOTE | 2025-06-27 16:13 | CHAPLAIN ---
Type of Pastoral Visit _x__ Initial Visit ___ Follow-up Visit ___ On-call Visit ___ General Patient Visit ___ Spiritual Assessment ___ Family Conference ___ Bereavement ___ Rapid Response ___ Code Blue ___ Other (describe below) Pastoral Care Referral From _x__ Patient _x__ Family ___ Nurse ___ Physician ___ Procedures Tech ___ Interventional Physiatrist ___ Other (describe below) Sacrament/Intervention _x__ Active listening ___ Anointing ___ Baptist ___ Bereavement ___ Communion _x__ Susan exploration ___ _x__ Life review ___ Prayer _x__ Reconciliation ___ Sacrament of Sick _x__ Supportive presence ___ Wedding ___ Other (describe below) Pastoral Comments patient and SO are in the room; pt is talkative and SO does contribute to the conversation too; pt first talks about his health scare with breathing and how 'this has happened before and been critical'; pt also mentions that SO was recently baptized and that he needs to return to the yarsanism and to susan as well; pt begins to talk about family issues and broken relationships which he says he is ready to 'put behind us and for me to reconcile'; pt has begun this process and has reached out to family; pt also speaks of a recent work incident that brought up 'past memories of trauma that made me relive those feelings'; pt is emotional and tearful as he speaks of these things, saying that I need to get them out and not hold them in; pt is given time to speak so he can audibly process and share feelings; pt is open to prayer support and spiritual care which is given; during this last portion of the visit, RN came to put patient on a heart moniter and he does check vital signs of patient; offer of future support given
--- NOTE | 2025-06-27 17:42 | CON.PCM.GI_ITS ---
HPI Consult Data Date of Consult: 06/27/25 HPI Narrative Reason for Consultation: Anemia HPI Narrative: PATIENCE RUST, is a 64-year-old male presenting to the emergency department for dyspnea for the past 2 weeks. Patient has a past medical history of COPD and hypertension. 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 States that has been using his nebulizers and Trelegy as prescribed and they help for a little bit but then he will develop shortness of breath again. States that on he was at a primary care doctor office visit and was noted to be febrile. States he took Motrin this morning around 5 or 6 AM. He states he also had an episode of chest pain this morning that was midsternal that is no longer present. He denies any history of DVT or PE. Denies any use of oral anticoagulation. Denies any recent travel, hospitalizations or surgeries. Denies any lower extremity edema. Stopped smoking 3 years ago. Does not wear any oxygen at baseline. [facility] Medical History Sinus tachycardia Purulent bronchitis Acute bronchospasm Acute exacerbation of chronic obstructive pulmonary disease COPD (chronic obstructive pulmonary disease) HTN (hypertension) Tobacco dependence COPD (chronic obstructive pulmonary disease) with acute bronchitis Home Medications ?Medication ?Instructions ?Recorded ?Last Taken ?Type albuterol sulfate 90 mcg/actuation 2 puff inhalation Q 6H shortness of 11/22/22 06/25/25 Rx aerosol inhaler breath or wheezing #8.5 gram s amlodipine 10 mg tablet 10 mg PO DAILY BLOOD PRESSUR E #30 11/22/22 06/26/25 Rx tabs lisinopril 20 mg tablet 20 mg PO DAILY BLOOD PRESSUR E #30 11/22/22 06/26/25 Rx tabs fluticasone fur. 100 mcg-umeclid 1 inh inhalation Q24H SOB 06/22/25 Unknown History 62.5 mcg-vilant 25 mcg inhalat.powder (Trelegy Ellipta) aspirin 81 mg tablet,delayed 81 mg PO DAILY HEART 11/1506/26/25 History release (Adult Low Dose Aspirin) Allergy/AdvReac Type Severity Reaction Status Date / Time No Known Allergies Allergy Verified 06/26/25 09:32 Family History Other Diabetes Hypertension Surgical History no surgical history Social History household members: spouse Smoking Status: Former smoker substance use type: does not use Lab / Micro Data 06/27/25 05:20 06/27/25 05:20 Labs: Laboratory Results - last 24 hr 06/27/25 05:20: WBC 22.8 H, RBC 3.82 L, Hgb 10.3 L, Hct 33.1 L, MCV 86.6, MCH 27.0, MCHC 31.1 L, RDW Std Deviation 48.3 H, RDW Coeff of Adelso 15.2 H, Plt Count 389, MPV 9.1, Immature Gran % (Auto) 0.700, Neut % (Auto) 96.3 H, Lymph % (Auto) 1.7 L, [place] % (Auto) 1.1, Eos % (Auto) 0.0, Baso % (Auto) 0.2, Absolute Neuts (auto) 21.9 H, Absolute Lymphs (auto) 0.39 L, Nucleated RBC % 0, Differential Comment SCANNED, Platelet Estimate ADEQUATE, Polychromasia 1+, Anisocytosis 1+, Target Cells RARE, Acanthocytes (Spur) RARE, Sodium 133, Potassium 4.2, Chloride 100, Carbon Dioxide 23.8, Anion Gap 9, BUN 11, Creatinine 0.72, Estim Creat Clear Calc 126.51, Est GFR (MDRD) Non-Af 103, BUN/Creatinine Ratio 15.5, Glucose 157 H, Calcium 8.5 Micro: Microbiology 06/26/25 15:55 Mucosa - Nasopharyngeal Respiratory Panel (PCR) - Final Assessment & Plan Assessment/Plan (1) SOB (shortness of breath): (2) Anemia: PLAN: 64-year-old male with a history of COPD and hypertension presenting with progressive dyspnea and decreasing hemoglobin. [place] issues and potential diagnoses include: Dyspnea:?Likely multifactorial given history of COPD. Possible causes include: * COPD exacerbation (supported by increasing symptoms, potential fever on ). * Anemia (supported by decreasing hemoglobin, which can cause significant dyspnea on exertion). * Cardiac etiology (atypical chest pain this morning, history of HTN and age are risk factors, though pain resolved). * Pulmonary embolism (history of resolved chest pain, dyspnea, but low pre- test probability based on denied risk factors like DVT/PE history, recent travel/surgery, or immobility). Anemia:?Decreasing hemoglobin requires investigation to determine etiology (e.g., GI bleed, chronic disease, iron deficiency). Patient has never had a colonoscopy, raising suspicion for potential GI pathology, especially in the context of age and iron deficiency (if present). Chest Pain:?Resolved, likely muscular, pleuritic, or atypical cardiac/GI given description and resolution, but warrants careful workup. Hypertension:?Chronic condition, likely managed. COPD:?On maintenance therapy (Trelegy, nebulizers), but symptoms suggest inadequate control or exacerbation. Plan Diagnostics: * Follow complete blood count (CBC) with differential to track the severity of anemia. * He will undergo an upper and lower endoscopy to evaluate his upper and lower GI tract for GI blood loss. He was explained alternatives, risk and benefits include understanding bleeding, infection, subsequent perforation, need for charge and . He will have an ASA of 3. Comprehensive metabolic panel (CMP) to assess kidney function, electrolytes, and liver function. Charges/Coding Visit Charges Inpatient E&M: 85792 Init Hosp L3
[2025-06-27] MEDS: Electrolyte Solution/Peg's 4000 ML PO (18:38)
[2025-06-28] VITALS (13 sets, daily range): BP systolic 83–137; BP diastolic 45–78; PULSE 64–85; RESP 14–18; TEMP 36.3–36.6; O2SAT 93–97
[2025-06-28 05:36] LABS: Hematocrit 30.9 % (40-54); Hemoglobin 9.6 g/dL (13.0-16.5); Immature Granulocytes Count 0.120 X10^3/uL (0.0-0.0); Mean Corp Hgb Conc 31.1 g/dL (32-36); Mean Corpuscular Volume 87.3 fL (80-94); Mean Platelet Vol. 8.8 fl (6.2-12.0); NRBC Flagged by Analyzer 0 % (0-5); Platelet Count 372 K/mm3 (150-450); RBC Distribution Width CV 15.6 % (11.6-14.6); RBC Distribution Width SD 50.1 fl (35.1-43.9); Red Blood Count 3.54 M/mm3 (4.6-6.2); White Blood Count 20.0 K/mm3 (4.4-11.0)
[2025-06-28 05:46] LABS: Prothrombin Time (Protime)PT. 14.3 SECONDS (11.7-14.9)
[2025-06-28 05:47] LABS: Partial Thromboplast Time 29.3 Seconds (24.1-36.2)
[2025-06-28 05:58] LABS: AST(SGOT) 11 U/L (<=37); Alanine Aminotransfer ALT/SGPT 5 U/L (<=46); Albumin, Serum 3.5 g/dL (3.4-4.8); Alkaline Phosphatase 41 U/L (40-129); Anion Gap 8 (5-15); BUN 14 mg/dL (4-19); BUN/Creat Ratio 20.5 RATIO (10-20); Bilirubin, Direct 0.15 mg/dL (0.00-0.30); Calcium,Total 8.5 mg/dL (7.6-11.0); Carbon Dioxide 25.9 mmol/L (21.0-32.0); Chloride 102 mmol/L (98-108); Estimated Creatinine Clearance 133.95 ml/min (50-250); Globulin 2.4 g/dL (2.2-4.2); Glucose 120 mg/dL (70-99); Potassium 4.2 mmol/L (3.3-5.1)
[2025-06-28] MEDS: 0.9% Saline Lock 10 ML Syringe IV (08:26)
[2025-06-28] MEDS: Sodium Ferric Gluconat/Sucrose 125 MG in 0.9% Normal Saline (100mL Bag) 100 ML 110 MG IV (08:26)
--- NOTE | 2025-06-28 09:44 | PN.HOSP_ITS ---
Subjective Subjective Plan for colonoscopy today, his hemoglobin continues to drop we will provide another dose of Venofer Objective Data Objective Data Vital Signs: Vital Signs Temp Pulse Resp BP Pulse Ox O2 Del Method 97.9 F 83 15 137/76 H 93 Room Air 06/28/25 08:27 06/28/25 08:27 06/28/25 08:27 06/28/25 08:27 06/28/25 08:27 06/28/25 08:27 Oxygen Delivery Method Room Air Weight: 222 lb 0.088 oz Body Mass Index (BMI) 31.8 Intake & Output: Intake and Output for Last 24 Hours 06/27/25 06/28/25 06/29/25 03:59 03:59 03:59 Intake Total 0 / 0 5670 / 5670 Output Total 750 / 750 375 / 375 Balance 1300 / 1300 5295 / 5295 Lab / Micro Data 06/28/25 05:11 06/28/25 05:11 Labs: Laboratory Results - last 24 hr 06/28/25 05:11: WBC 20.0 H, RBC 3.54 L, Hgb 9.6 L, Hct 30.9 L, MCV 87.3, MCH 27.1, MCHC 31.1 L, RDW Std Deviation 50.1 H, RDW Coeff of Adelso 15.6 H, Plt Count 372, MPV 8.8, Immature Gran % (Auto) 0.600, Neut % (Auto) 88.7 H, Lymph % (Auto) 7.0 L, [place] % (Auto) 3.6, Eos % (Auto) 0.0, Baso % (Auto) 0.1, Absolute Neuts (auto) 17.8 H, Absolute Lymphs (auto) 1.41, Nucleated RBC % 0, PT 14.3, INR 1.1, APTT 29.3, Sodium 135, Potassium 4.2, Chloride 102, Carbon Dioxide 25.9, Anion Gap 8, BUN 14, Creatinine 0.68 L, Estim Creat Clear Calc 133.95, Est GFR (MDRD) Non-Af 105, BUN/Creatinine Ratio 20.5 H, Glucose 120 H, Calcium 8.5, Total Bilirubin 0.27, Direct Bilirubin 0.15, AST 11, ALT 5, Alkaline Phosphatase 41, Total Protein 6.0, Albumin 3.5, Globulin 2.4 Micro: Microbiology 06/26/25 15:55 Mucosa - Nasopharyngeal Respiratory Panel (PCR) - Final 06/26/25 10:40 Mucosa - Nose SARS-CoV-2, Influenza & RSV (PCR) - Final Physical Exam Narrative General: Alert, Oriented x3, Cooperative, No apparent distress HEENT: Atraumatic, PERRLA, EOMI, Normocephalic Oral: Moist Mucosa Neck: Supple, No JVD Lungs: Diminished, Normal air movement, No rhonchi, No wheeze, No rales Cardiovascular: Regular rate, Regular Rhythm, Normal S1, Normal S2, No murmurs Abdomen: Soft, Non Tender, Non-Distended, No Hepato-splenomegaly Extremities: No edema, Capillary Refill Less than 3 Seconds Skin: No rashes, No breakdown Musculoskeletal: No Tenderness to Palpation of Joints or Extremities Neurological: No focal neurological deficits, moves all extremities Psych/Mental Status: Normal Affect, Appropriate Assessment & Plan Assessment/Plan (1) COPD (chronic obstructive pulmonary disease): (2) SOB (shortness of breath): PLAN: Plan 1. Shortness of breath secondary iron deficiency anemia and acute blood loss anemia ? His anemia is iron deficient though given his Hemoccult it is likely iron deficient due to slow bleed, B12 is normal ? Will provide another iron infusion today as his hemoglobin has continued to drop to 9.6 ? Leukocytosis is improving but still unclear source, blood cultures are pending ? Continue with breathing treatments ? Plan for colonoscopy today he has never had 1 before 2. Essential HTN ? Blood pressures are stable, he is on Norvasc and lisinopril ? Will continue and monitor ? Given the negative troponins and a nonischemic EKG not overly concerned for cardiac source of his shortness of breath at this time ? Continues to deny any chest pain DVT: SCDs Charges/Coding Visit Charges Inpatient E&M: 28301 Subs Hosp L2
[2025-06-28] MEDS: Lactated Ringers 1,000 ML 15 ML IV (10:39)
--- NOTE | 2025-06-28 10:52 | PRE.ANES_ITS ---
ASA Classification* ASA Classification ASA Classification: 3 (COPD, SOB (due to anemia), HTN) Assessment & Plan Anesthesia* Anesthesia Assessment Anesthesia Assessment: Discussed sedation and/or anesthesia options, risks, benefits, and alternatives with patient/parents/legal guardian/POA. Questions invited. The patient/parents/legal guardian/POA seems to understand and agrees to proceed with anesthesia plan. Reviewed the physical assessment, medical history, allergy history and patient home medications list prior to surgery/procedure/anesthetic and documented any changes. Performed airway and anesthesia risk assessments. Anesthesia Type Anesthesia Type: MAC History Source History Obtained from:: Patient and Chart Anesthesia Focused Assessment* Temperature: 97.9 F Pulse Rate: 83 Blood Pressure: 137/76 Respiratory Rate: 15 Pulse Ox: 93 Oxygen Delivery Method: Room Air Airway Assessment Mouth opens: >3 cm Mallampati Score: II Teeth Condition: Full and Missing Neck Range of motion (ROM): Full ROM Labs Anesthesia Preop lab: CBC WBC, (4.4-11.0) 20.0 K/mm3 H Today, 05:11 RBC, (4.6-6.2) 3.54 M/mm3 L Today, 05:11 Hgb, (13.0-16.5) 9.6 g/dL L Today, 05:11 Hct, (40-54) 30.9 % L Today, 05:11 Plt Count, (150-450) 372 K/mm3 Today, 05:11 CHEMISTRY Potassium, (3.3-5.1) 4.2 mmol/L Today, 05:11 Sodium, (133-145) 135 mmol/L Today, 05:11 Magnesium, (1.8-2.4) 2.2 mg/dL 05/24/15, 06:34 BUN, (4-19) 14 mg/dL Today, 05:11 Creatinine, (0.70-1.20) 0.68 mg/dL L Today, 05:11 Glucose, (70-99) 120 mg/dL H Today, 05:11 COAG PT, (11.7-14.9) 14.3 SECONDS Today, 05:11 Pre-Assessment Diagnosis/Proposed Procedure Planned Operative Procedure(s): EGD/cscope Anesthesia History Anesthesia History - quality control manager: Anesthesia History - quality control manager Hx Hospitalization Any Problems With Anesthesia No 06/27/25 23:09 Cholinesterase deficiency No 06/27/25 23:09 You/Your Family Experience No 06/27/25 23:09 fever (hyperthermia) with Relationship Recent Exposure to Contagious No 06/27/25 23:09 Disease Does patient have nerve No 06/27/25 23:09 stimulator Patient instructed to have No 06/27/25 23:09 device shut off --Does patient have Pacemaker or ICD? When Was Last Pacemaker Check QUESTION #4 FULL TEXT: You/Your Family Experience fever (hyperthermia) with Anesthesia Last Oral Intake Last Oral intake: Last Oral Intake NPO since 00:00 06/27/25 23:09 Meds taken in AM with sips of water? Meds patient instructed to take am of surgery PONV PONV - quality control manager: PONV - quality control manager Female HX of Motion Sickness HX of N/V After Surgery Non-Smoker Duration of Surgery greater than 60 minutes Number of Risk Factors PONV Score Height & Weight Height & Weight: Anesthesia: Height & Weight Height 5 ft 10 in 06/28/25 10:25 Weight: 100.7 kg 06/28/25 10:25 Body Mass Index (BMI) 31.8 06/27/25 23:09 Respiratory Assessment Respiratory Assessment - quality control manager: Respiratory Tract Infection Hx - quality control manager Hx Respiratory Tract Infection No 06/27/25 23:09 STOP Sleep Apnea STOP Sleep Apnea - quality control manager: STOP Sleep Apnea - quality control manager Hx Hypertension Yes 06/26/25 14:51 Hx Sleep Apnea No 06/26/25 14:51 CPAP No 05/23/15 02:03 BIPAP No 05/23/15 02:03 Do you snore loudly (louder Yes 06/26/25 14:51 than talking or can be heard Do you often feel tired/ Yes 06/26/25 14:51 fatigued/ sleepy during daytime? Has anyone observed you stop Yes 06/26/25 14:51 breathing during sleep? STOP Results Positive 06/26/25 14:51 QUESTION #5 FULL TEXT : Do you snore loudly (louder than talking or can be heard through closed doors)? Tobacco Use History Tobacco Use History - quality control manager: Tobacco Use History - quality control manager Tobacco Use Smoking Status Former smoker 06/26/25 16:26 Hx Tobacco Use Yes 06/26/25 14:51 Years Smoking Packs Smoked per Day Smoking Cessation Date was Yes - quit smoking within 15 06/26/25 14:51 within the last 15 years years Hx Smoking Cessation Date Hx Smoking Cessation Counseling Hematologic Medial History Hematologic Hx - quality control manager: Hematologic Medical Hx - engineer technical staff Hx of Blood Transfusion No 06/26/25 14:51 Hx of Transfusion in last 3 No 06/26/25 14:51 Months Date of Last Transfusion (if within last 3 months) Ever experience any problems No 06/26/25 14:51 with transfusion(s)? Specify any problems Hx of Preganancy in last 3 N/A 06/26/25 14:51 Months Nurse Filling Out Transfusion [id number] 06/26/25 14:51 & Questions: Date: 06/26/25 06/26/25 14:51 Time: 14:56 06/26/25 14:51 Patient unable to answer at this time (ie. confused, unrespo /Reproduction History /Reproductive History - quality control manager: /Reproductive Hx- quality control manager Hx Now No 06/27/25 23:09 Gestational Age (in weeks): EDC: Hx Hx Para Hx Section SAB No 06/27/25 23:09 Active Medications Active Medications: Current Medications Generic Name Dose Route Start Last Admin Trade Name Freq PRN Reason Stop Dose Admin Albuterol/Ipratropium 3 ml 06/26/25 14:51 06/28/25 07:07 Ipratropium/Albuterol Sulfate 3 Ml Ampul.Neb INHALATION 3 ml Q4HWA.RT GARRY Administration Amlodipine Besylate 10 mg 06/28/25 10:00 06/28/25 08:27 Amlodipine 10 Mg Tablet PO 10 mg DAILY GARRY Administration Protocol Hydralazine HCl 10 mg 06/27/25 20:17 Hydralazine 20 Mg/Ml Vial IV Q6H PRN PRN SBP GREATER THAN 170 Protocol Sodium Chloride 250 mls @ 15 mls/hr 06/26/25 14:59 IV .[id number] PRN Saline Flush Sodium Chloride 250 mls @ 15 mls/hr 06/26/25 14:59 IV .[id number] PRN Additional IVPB Infusion Lactated Ringer's 1,000 mls @ 15 mls/hr 06/28/25 10:30 06/28/25 10:39 IV 15 mls/hr .Q48H GARRY Administration Lisinopril 20 mg 06/28/25 10:00 06/28/25 08:26 Lisinopril 20 Mg Tablet PO 20 mg DAILY GARRY Administration Protocol Sodium Chloride 10 - 40 ml 06/26/25 14:59 06/28/25 08:26 0.9% Saline Lock 10 Ml Syringe IV 10 ml UD PRN Administration SALINE FLUSH PFSH Medical History Sinus tachycardia Purulent bronchitis Acute bronchospasm Acute exacerbation of chronic obstructive pulmonary disease COPD (chronic obstructive pulmonary disease) HTN (hypertension) Tobacco dependence COPD (chronic obstructive pulmonary disease) with acute bronchitis Home Medications ?Medication ?Instructions ?Recorded ?Last Taken ?Type albuterol sulfate 90 mcg/actuation 2 puff inhalation Q 6H shortness of 11/22/22 06/25/25 Rx aerosol inhaler breath or wheezing #8.5 gram s amlodipine 10 mg tablet 10 mg PO DAILY BLOOD PRESSUR E #30 11/22/22 06/26/25 Rx tabs lisinopril 20 mg tablet 20 mg PO DAILY BLOOD PRESSUR E #30 11/22/22 06/26/25 Rx tabs fluticasone fur. 100 mcg-umeclid 1 inh inhalation Q24H SOB 06/22/25 Unknown History 62.5 mcg-vilant 25 mcg inhalat.powder (Trelegy Ellipta) aspirin 81 mg tablet,delayed 81 mg PO DAILY HEART 11/1506/26/25 History release (Adult Low Dose Aspirin) Allergy/AdvReac Type Severity Reaction Status Date / Time No Known Allergies Allergy Verified 06/28/25 10:37 Family History Other Diabetes Hypertension Surgical History no surgical history Social History household members: spouse Smoking Status: Former smoker substance use type: does not use Review of Systems (Anesthesia) ROS Narrative System reviewed and no additional complaints, except as documented.
--- NOTE | 2025-06-28 11:00 | COLBX_PTH ---
PATIENT: PATIENCE RUST LOC: [facility] U#:[id number] AGE/SX: 64/M ROOM: [facility] RE06/26/[address]: Dr. Andrés Cooper MD : 1960 BED: 1 DIS: 06/28/2025 SPEC #: [id number] RECD: 06/28/25 13:41 STATUS: KIRTI FOSTER #: [id number] PIEDAD: 06/28/25 11:[address]: Freddy Edward DEPT: SURGICAL PATHOLOGY RECD BY: Cj Brennan ENTERED: 06/28/25 14:23 SP TYPE: COLON BX OTHR DR: MD Dr. Shai Segovia MD Heather Evans, CAMERA MECHANIC-C Elvira Simpson NP-C MINNA De La Rosa NP-C Tissues: A - Duodenum, NOS B - Gastric mucous membrane C - Esophagus, NOS D - Sigmoid colon biopsy Procedures: Immunohistochemical Stains Surgery Specimen Level IV HEADER OPERATION: Colonoscopy, EGD and biopsy, Gold Probe Cautery and polypectomy PRE-OP DIAGNOSIS: Short of breath, anemia TISSUE SUBMITTED: A- Duodenum biopsy, B- Gastric body biopsy, C- Distal esophagus biopsy, D- Sigmoid colon polyp MICROSCOPIC DIAGNOSIS A. Duodenum, biopsy: - Normal villous architecture with mild Neil gland hyperplasia. - Negative for increased intraepithelial lymphocytes. B. Gastric body, biopsy: - Oxyntic mucosa with no specific pathologic change. - IHC negative for H. pylori organisms. C. Distal esophagus, biopsy: - Squamous mucosa with reactive changes. - Columnar mucosa with goblet cell metaplasia - see note. 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 Focal epithelial atypia is indefinite for dysplasia. D. Sigmoid colon, polyp, biopsy: - Tubular adenoma. MICROSCOPIC DESCRIPTION Slides are reviewed. All matched controls reacted appropriately. These tests were developed and their performance characteristics determined by [facility]. They may not have been cleared or approved by the U.S. Food and Drug Administration. The FDA has determined that such clearance or approval is not necessary. The above immunohistochemical markers are viewed by the Pathologist. GROSS DESCRIPTION A. Received in fixative is one container labeled with the patient's name and designated Duodenum biopsy. The specimen consists of two irregular fragments of steiner tissue that measure 0.3 and 0.4 cm. The specimen is totally submitted in one cassette. B. Received in fixative is one container labeled with the patient's name and designated Gastric body biopsy. The specimen consists of two irregular fragments of steiner tissue, each measuring 0.3 cm. The specimen is totally submitted in one cassette. C. Received in fixative is one container labeled with the patient's name and designated Distal esophagus biopsy. The specimen consists of two irregular fragments of steiner tissue, each measuring 0.4 cm. The specimen is totally submitted in one cassette. D. Received in fixative is one container labeled with the patient's name and designated Sigmoid colon polyp. The specimen consists of two irregular fragments of steiner tissue that measure 0.3 and 0.4 cm. The specimen is totally submitted in one cassette. [place] 06/28/2025 CPT:54661f1,00504
[2025-06-28] MEDS: Lidocaine 1% (5 ml sdv) 5 ML Vial 10 ML IV (11:35)
--- NOTE | 2025-06-28 11:54 | NURSING ---
went to check on patient not in room tech took down for procedure report called to Anita in ac
--- NOTE | 2025-06-28 12:02 | OP.PROVAT_ITS ---
06/28/2025 Rachell Boss Re : Upper GI endoscopy procedure for Fei Nielsen Emilyr Sherry This procedure was performed on Saturday, June 28, 2025. My impressions and recommendations are as follows: Impressions : - LA Grade B reflux esophagitis with no bleeding. Biopsied. - Chronic gastritis. Biopsied. - No gross lesions in the entire examined duodenum. Recommendations : - Discharge patient to home. - Resume previous diet. - Continue present medications. - Await pathology results. My findings are described in the full procedure note, which is enclosed. If I can be of further assistance, please feel free to contact me at . Sincerely, Freddy Edward, 06/28/2025 12:02:21 PM This report has been signed electronically.
--- NOTE | 2025-06-28 12:02 | OP.EGD_ITS ---
Patient Name: Fei Nielsen Procedure Date: 06/28/2025 11:26 AM Date of : 1960 Age: 64 Procedure: Upper GI endoscopy Indications: Iron deficiency anemia Providers: Freddy Edward DO Medicines: Monitored Anesthesia Care Patient Profile: This is a 64 year old male. Refer to note in patient chart for documentation of history and physical. Patient has symptoms. Complications: No immediate complications. Procedure: Pre-Anesthesia Assessment: - Prior to the procedure, a History and Physical was performed, and patient medications and allergies were reviewed. The patient is competent. The risks and benefits of the procedure and the sedation options and risks were discussed with the patient. All questions were answered and informed consent was obtained. Patient identification and proposed procedure were verified by the physician in the pre-procedure area. Mental Status Examination: alert and oriented. Airway Examination: normal oropharyngeal airway and neck mobility. Respiratory Examination: clear to auscultation. CV Examination: normal. Prophylactic Antibiotics: The patient does not require prophylactic antibiotics. Prior Anticoagulants: The patient has taken no anticoagulant or antiplatelet agents. ASA Grade Assessment: II - A patient with mild systemic disease. After reviewing the risks and benefits, the patient was deemed in satisfactory condition to undergo the procedure. The anesthesia plan was to use monitored anesthesia care (MAC). Immediately prior to administration of medications, the patient was re-assessed for adequacy to receive sedatives. The heart rate, respiratory rate, oxygen saturations, blood pressure, adequacy of pulmonary ventilation, and response to care were monitored throughout the procedure. The physical status of the patient was re-assessed after the procedure. After obtaining informed consent, the endoscope was passed under direct vision. Throughout the procedure, the patient's blood pressure, pulse, and oxygen saturations were monitored continuously. The Colonoscope was introduced through the mouth, and advanced to the fourth part of the duodenum. Small bowel enteroscopy was deemed necessary. The upper GI endoscopy was accomplished without difficulty. The patient tolerated the procedure well. Scope In: 11:38:16 AM Scope Out: 11:43:42 AM Total Procedure Duration Time 0 hours 5 minutes 26 seconds Findings: LA Grade B (one or more mucosal breaks greater than 5 mm, not extending between the tops of two mucosal folds) esophagitis with no bleeding was found 38 to 40 cm from the incisors. Biopsies were taken with a cold forceps for histology. Verification of patient identification for the specimen was done. Estimated blood loss was minimal. Patchy moderate inflammation characterized by erosions and erythema was found in the gastric body. Biopsies were taken with a cold forceps for histology. Verification of patient identification for the specimen was done. Estimated blood loss was minimal. Biopsies were taken with a cold forceps for Helicobacter pylori testing. Verification of patient identification for the specimen was done. Estimated blood loss was minimal. Patchy mild inflammation characterized by erythema was found in the entire duodenum. Biopsies were taken with a cold forceps for histology. Verification of patient identification for the specimen was done. Estimated blood loss was minimal. Impression: - LA Grade B reflux esophagitis with no bleeding. Biopsied. - Chronic gastritis. Biopsied. - No gross lesions in the entire examined duodenum. Recommendation: - Discharge patient to home. - Resume previous diet. - Continue present medications. - Await pathology results. Procedure Code(s): --- Professional --- 68922, Small intestinal endoscopy, enteroscopy beyond second portion of duodenum, not including ileum; with biopsy, single or multiple CPT copyright 2021 [employer]. All rights reserved. The codes documented in this report are preliminary and upon ict customer support officer review may be revised to meet current compliance requirements. Freddy Edward DO 06/28/2025 12:02:21 PM This report has been signed electronically. Number of Addenda: 0 Note Initiated On: 06/28/2025 11:26 AM
--- NOTE | 2025-06-28 12:06 | PCM.POST.ANE ---
Anesthesia: Postop Eval I Current Vital Signs Temperature: 97.8 F Pulse Rate: 82 Blood Pressure: 89/45 Respiratory Rate: 18 Pulse Ox: 94 Oxygen Delivery Method: Room Air Assessment Airway patent: Yes Spontaneous unlabored respirations: Yes Mental status: Awake and Calm nausea: No Vomiting: No Anesthesia Complication: No Fluid Hydration Crystalloid volume administer (ml): 300 Total IV fluid infused: 300 Progress Note Anesthesia document: Postop Eval 1 completed: Yes
--- NOTE | 2025-06-28 12:07 | OP.COLON_ITS ---
Patient Name: Fei Nielsen Procedure Date: 06/28/2025 11:44 AM Date of : 1960 Age: 64 Procedure: Colonoscopy Indications: Heme positive stool, Gastrointestinal bleeding, Iron deficiency anemia Providers: Freddy Edward DO Medicines: Monitored Anesthesia Care Patient Profile: This is a 64 year old male. Refer to note in patient chart for documentation of history and physical. Patient has symptoms. Last Colonoscopy: none. The patient's first colonoscopy is today. Complications: No immediate complications. Procedure: Pre-Anesthesia Assessment: - Prior to the procedure, a History and Physical was performed, and patient medications and allergies were reviewed. The patient is competent. The risks and benefits of the procedure and the sedation options and risks were discussed with the patient. All questions were answered and informed consent was obtained. Patient identification and proposed procedure were verified by the physician in the pre-procedure area. Mental Status Examination: alert and oriented. Airway Examination: normal oropharyngeal airway and neck mobility. Respiratory Examination: clear to auscultation. CV Examination: normal. Prophylactic Antibiotics: The patient does not require prophylactic antibiotics. Prior Anticoagulants: The patient has taken no anticoagulant or antiplatelet agents. ASA Grade Assessment: II - A patient with mild systemic disease. After reviewing the risks and benefits, the patient was deemed in satisfactory condition to undergo the procedure. The anesthesia plan was to use monitored anesthesia care (MAC). Immediately prior to administration of medications, the patient was re-assessed for adequacy to receive sedatives. The heart rate, respiratory rate, oxygen saturations, blood pressure, adequacy of pulmonary ventilation, and response to care were monitored throughout the procedure. The physical status of the patient was re-assessed after the procedure. After I obtained informed consent, the scope was passed under direct vision. Throughout the procedure, the patient's blood pressure, pulse, and oxygen saturations were monitored continuously. The Colonoscope was introduced through the anus and advanced to the terminal ileum. The colonoscopy was performed without difficulty. The patient tolerated the procedure well. The quality of the bowel preparation was adequate. The terminal ileum, ileocecal valve, appendiceal orifice, and rectum were photographed. Scope In: 11:44:56 AM Scope Withdrawal Time 0 hours 9 minutes 3 seconds Scope Out: 11:57:21 AM Total Procedure Duration Time 0 hours 12 minutes 25 seconds Findings: The perianal and digital rectal examinations were normal. Multiple small-mouthed diverticula were found in the recto-sigmoid colon, sigmoid colon and descending colon. A 7 mm polyp was found in the sigmoid colon. The polyp was sessile. The polyp was removed with a jumbo cold forceps. Resection and retrieval were complete. Verification of patient identification for the specimen was done. Estimated blood loss was minimal. Red blood was found in the ascending colon. A single large localized angiodysplastic lesion with bleeding was found in the ascending colon. Coagulation for hemostasis using heater probe was successful. Estimated blood loss was minimal. Impression: - Diverticulosis in the recto-sigmoid colon, in the sigmoid colon and in the descending colon. - One 7 mm polyp in the sigmoid colon, removed with a jumbo cold forceps. Resected and retrieved. - Blood in the ascending colon. - A single bleeding colonic angiodysplastic lesion. Treated with a heater probe. Recommendation: - Discharge patient to home. - Resume previous diet. - Continue present medications. - Await pathology results. - Repeat colonoscopy in 5 years for surveillance. Procedure Code(s): --- Professional --- 38519, 59, Colonoscopy, flexible; with control of bleeding, any method 42532, Colonoscopy, flexible; with biopsy, single or multiple CPT copyright 2021 [employer]. All rights reserved. The codes documented in this report are preliminary and upon waiter/waitress tavern review may be revised to meet current compliance requirements. Freddy Edward DO 06/28/2025 12:06:52 PM This report has been signed electronically. Number of Addenda: 0 Note Initiated On: 06/28/2025 11:44 AM
--- NOTE | 2025-06-28 12:07 | OP.PROVAT_ITS ---
06/28/2025 Rachell Boss Re : Colonoscopy procedure for Fei Diazbhavik Powell This procedure was performed on Saturday, June 28, 2025. My impressions and recommendations are as follows: Impressions : - Diverticulosis in the recto-sigmoid colon, in the sigmoid colon and in the descending colon. - One 7 mm polyp in the sigmoid colon, removed with a jumbo cold forceps. Resected and retrieved. - Blood in the ascending colon. - A single bleeding colonic angiodysplastic lesion. Treated with a heater probe. Recommendations : - Discharge patient to home. - Resume previous diet. - Continue present medications. - Await pathology results. - Repeat colonoscopy in 5 years for surveillance. My findings are described in the full procedure note, which is enclosed. If I can be of further assistance, please feel free to contact me at . Sincerely, Freddy Edward, 06/28/2025 12:06:52 PM This report has been signed electronically.
--- NOTE | 2025-06-28 12:38 | POSTOPAN2_ITS ---
Anesthesia Postop Eval I Sum Postop Eval Completion status Anesthesia document: Postop Eval 1 completed: Yes Anesthesia Postop Eval I Summary Anesthesia Postop Eval I Summary: Anesthesia Postop Eval I: Assessment Summary Airway patent Yes 06/28/25 12:07 [email or web address] Spontaneous unlabored Yes 06/28/25 12:07 [email or web address] [email or web address] respirations Mental status Awake,Calm 06/28/25 12:07 [email or web address] [email or web address] nausea No 06/28/25 12:07 [email or web address] Vomiting No 06/28/25 12:07 [email or web address] Anesthesia Postop Eval I: Fluid Summary Crystalloid volume administer 300 06/28/25 12:07 [email or web address] (ml) Colloids volume administered ( ml) Blood Product volume administered (ml) Total IV fluid infused 300 06/28/25 12:07 [email or web address] Anesthesia Postop Eval I: Summary Notes Anesthesia Complication No 06/28/25 12:07 [email or web address] Anesthesia Complication Comment: Post-operative progress note Anesthesia: Postop Eval II Evaluation Mental status: Awake Pain Level: 0 nausea: No Vomiting: No Complications Anesthesia Complication: No
--- NOTE | 2025-06-28 12:38 | PCM.POSTANE2 ---
Anesthesia Postop Eval I Sum Postop Eval Completion status Anesthesia document: Postop Eval 1 completed: Yes Anesthesia Postop Eval I Summary Anesthesia Postop Eval I Summary: Anesthesia Postop Eval I: Assessment Summary Airway patent Yes 06/28/25 12:07 [email or web address] Spontaneous unlabored Yes 06/28/25 12:07 [email or web address] respirations Mental status Awake,Calm 06/28/25 12:07 [email or web address] nausea No 06/28/25 12:07 [email or web address] Vomiting No 06/28/25 12:07 [email or web address] Anesthesia Postop Eval I: Fluid Summary Crystalloid volume administer 300 06/28/25 12:07 [email or web address] (ml) Colloids volume administered ( ml) Blood Product volume administered (ml) Total IV fluid infused 300 06/28/25 12:07 [email or web address] Anesthesia Postop Eval I: Summary Notes Anesthesia Complication No 06/28/25 12:07 [email or web address] Anesthesia Complication Comment: Post-operative progress note Anesthesia: Postop Eval II Evaluation Mental status: Awake Pain Level: 0 nausea: No Vomiting: No Complications Anesthesia Complication: No
--- NOTE | 2025-06-28 12:57 | PCM.DC ---
Discharge Instructions DC O2, CPAP, BIPAP needs Home O2 Discharge instructions: No Dressing / Incision Discharge Activity: Return to Normal Activity Dressing / Incision Call your doctor if you observe: Fever of 101 or Higher, Shortness of breath, Dizziness, Fainting spells, Swelling in the ankles, Chest pain and Increased palpitations (irregular heartbeat) Follow Up Care Test Results: Test results from this visit will be discussed in further detail at your follow-up appointment, if applicable. Discharge Plan Admission Admit Date/Time: 06/26/25 13:49 Attending Provider: Andrés Cooper Primary Care Provider: Fernanda Powell Consulting Providers: Shai Cardona; Freddy Edward; Jenny Nguyen; Elvira Simpson; Debra Denson Instructions Additional Instructions / Restrictions: Follow-up with your primary care doctor in 3 to 5 days to monitor your hemoglobin as well as your white count. Your white count can be elevated secondary to infection but there are other causes, it is unclear as to why yours in particular was elevated though it is improving without any antibiotics. So far blood cultures have been negative and there have not been any other signs of infection. Discharge Orders/Prescriptions Prescriptions: New ferrous gluconate 324 mg (38 mg iron) tablet 324 mg PO DAILY Qty: 30 0RF Continued Trelegy Ellipta 100-62.5-25 mcg blister with device 1 inh inhalation Q24H lisinopril 20 mg Tablet 20 mg PO DAILY Qty: 30 0RF amlodipine 10 mg Tablet 10 mg PO DAILY Qty: 30 0RF albuterol sulfate 90 mcg/actuation HFA aerosol inhaler 2 puff inhalation Q6H Qty: 8.5 0RF Rx Instructions: use for the next five days, then use two puffs every six hours as needed for shortness of breath thereafter Held aspirin [Adult Low Dose Aspirin] 81 mg tablet,delayed release (DR/EC) 81 mg PO DAILY Hold Instructions: Resume on 07/01/25. Referrals / Follow Up: Freddy Edward DO [Med Staff - Active Staff, Gastroenterology] - Within 1 Month Fernanda Powell REGISTERED PHARMACY TECHNICIAN-C [Primary Care Provider, Family Practice] - Within 2 Weeks Disposition Disposition (needs filled in before D/C Order can be placed): Home, Self Care
--- NOTE | 2025-06-28 13:58 | DS.PCM_ITS ---
Providers Date of Admission: 06/26/25 Primary Care Physician: TODD Boss Consultations 06/27/25 09:45 Consult: Gastroenterology Routine Consulting Provider: [facility] Reason for Consult: Colonoscopy EMERGENT Consult: No MD Notified: Yes Date Notified: 06/27/25 Time Notified: 09:45 Method of Notification: Verbal Reason For Visit: COPD Diagnosis Discharge Diagnosis (1) COPD (chronic obstructive pulmonary disease): Status: Chronic Code(s): J44.9 - Chronic obstructive pulmonary disease, unspecified (2) SOB (shortness of breath): Status: Acute Code(s): R06.02 - Shortness of breath Medications at Discharge Home Medications albuterol sulfate 90 mcg/actuation aerosol inhaler 2 puff inhalation Q6H shortness of breath or wheezing #8.5 grams 11/22/22 amlodipine 10 mg tablet 10 mg PO DAILY BLOOD PRESSURE #30 tabs 11/22/22 lisinopril 20 mg tablet 20 mg PO DAILY BLOOD PRESSURE #30 tabs 11/22/22 fluticasone fur. 100 mcg-umeclid 62.5 mcg-vilant 25 mcg inhalat.powder (Trelegy Ellipta) 1 inh inhalation Q24H SOB 06/22/25 aspirin 81 mg tablet,delayed release (Adult Low Dose Aspirin) 81 mg PO DAILY HEART 06/26/25 Held on 06/28/25. Instructions: Resume on 07/01/25. ferrous gluconate 324 mg (38 mg iron) tablet 324 mg PO DAILY #30 tabs 06/28/25 pantoprazole 40 mg tablet,delayed release (Protonix) 40 mg PO DAILY #30 tabs 06/28/25 Hospital Course Operations None Procedures Colonoscopy and EGD Summary of Care Provided Minutes Spent on Discharge: 34 Hospital Course: Per HPI: PATIENCE RUST, is a 64 M who presents to the hospital with shortness of breath. After arrival he was found to also be hypoxic and was placed on 2 L nasal cannula. He does have a history of tobacco abuse so there is concern for COPD exacerbation. He was denying any chest pain and EKG was nonischemic with negative troponins and a proBNP of 45. Chest x-ray was unremarkable but he did have a leukocytosis so there is concern for possible infection but there is no obvious source as he was not complaining of any dysuria or abdominal pain. Because of his shortness of breath a CTA of the chest was performed which was negative for PE but it did show an odd calcified lesion in his left upper quadrant that was freestanding and not attached to any organ there is concern for possible left adrenal mass but he has had this since 2014 on x-ray it does not appear to have changed. Of note he is severely iron deficient and his primary care doctor had ordered a Hemoccult about a month ago which was positive. They are in the process of getting him outpatient evaluation however today is hemoglobin in the ER is 11.2. Hospital Course: 1. Shortness of breath secondary to iron deficiency anemia and acute blood loss anemia?64-year-old male presented to the hospital with increasing shortness of breath. He was found to be anemic on admission and this worsened throughout his hospitalization he went down to 9.6 on the day of discharge. On admission he was found to be severely iron deficient with ferritin less than 20 and so he was started on IV iron replacement and he received 2 doses of Venofer at 250 mg and then a final dose of Venofer 825 mg on the day of discharge. He did have a colonoscopy that demonstrated an angiodysplastic lesion as well as a polyp which was removed. EGD demonstrated grade D reflux esophagitis with no obvious bleeding and chronic gastritis. I discussed with him the possibility for discharge today after his procedures and he expressed understanding of the risk benefits of going home and would like to go home today. Will continue with Protonix 40 mg p.o. daily on discharge as well as iron supplementation daily. I do recommend close outpatient follow-up and I did discuss the case with his PCPs office about needing close outpatient lab work to monitor his hemoglobin and also make adjustments in his iron supplementation. I did hold his aspirin for a few days on discharge. Oddly he did have a leukocytosis on admission but the source is unclear. He has no obvious signs of infection and blood cultures are negative. It has improved without antibiotics therefore I will not send him on any antibiotic, but I do recommend outpatient follow-up for this as well. 2. COPD, essential hypertension, all chronic medical conditions which complicate his care. His home medications were continued where appropriate. He did have episodes of noncardiac chest pain secondary to anxiety. Troponins and EKGs were all nonischemic. Weight / BMI Weight Weight: 222 lb 0.088 oz Body Mass Index (BMI) 31.8 ABG / Lab / Microbiology Data 06/28/25 05:11 06/28/25 05:11 Laboratory: Laboratory Results - last 24 hr 06/28/25 05:11: WBC 20.0 H, RBC 3.54 L, Hgb 9.6 L, Hct 30.9 L, MCV 87.3, MCH 27.1, MCHC 31.1 L, RDW Std Deviation 50.1 H, RDW Coeff of Adelso 15.6 H, Plt Count 372, MPV 8.8, Immature Gran % (Auto) 0.600, Neut % (Auto) 88.7 H, Lymph % (Auto) 7.0 L, [place] % (Auto) 3.6, Eos % (Auto) 0.0, Baso % (Auto) 0.1, Absolute Neuts (auto) 17.8 H, Absolute Lymphs (auto) 1.41, Nucleated RBC % 0, PT 14.3, INR 1.1, APTT 29.3, Sodium 135, Potassium 4.2, Chloride 102, Carbon Dioxide 25.9, Anion Gap 8, BUN 14, Creatinine 0.68 L, Estim Creat Clear Calc 133.95, Est GFR (MDRD) Non-Af 105, BUN/Creatinine Ratio 20.5 H, Glucose 120 H, Calcium 8.5, Total Bilirubin 0.27, Direct Bilirubin 0.15, AST 11, ALT 5, Alkaline Phosphatase 41, Total Protein 6.0, Albumin 3.5, Globulin 2.4 Microbiology: Microbiology 06/26/25 11:18 Blood Culture (Wb) - Left Hand Blood Culture - Preliminary No growth in 48 hours. 06/26/25 11:10 Blood Culture (Wb) - Anticubital Left Blood Culture - Preliminary No growth in 48 hours. 06/26/25 15:55 Mucosa - Nasopharyngeal Respiratory Panel (PCR) - Final 06/26/25 10:40 Mucosa - Nose SARS-CoV-2, Influenza & RSV (PCR) - Final D/C Instructions Call your doctor if you observe: Fever of 101 or Higher, Shortness of breath, Dizziness, Fainting spells, Swelling in the ankles, Chest pain and Increased palpitations (irregular heartbeat) DC O2, CPAP, BIPAP Needs Home O2 Discharge instructions: No Meaningful Use Info Meaningful Use Meaningful Use Diagnoses (Choose all that apply): None applicable Discharge Plan Admission Admit Date/Time: 06/26/25 13:49 Attending Provider: Andrés Cooper Primary Care Provider: Fernanda Powell Consulting Providers: Shai Cardona; Freddy Edward; Jenny Nguyen; Elvira Simpson; Debra Denson Instructions Additional Instructions / Restrictions: Follow-up with your primary care doctor in 3 to 5 days to monitor your hemoglobin as well as your white count. Your white count can be elevated secondary to infection but there are other causes, it is unclear as to why yours in particular was elevated though it is improving without any antibiotics. So far blood cultures have been negative and there have not been any other signs of infection. Discharge Orders/Prescriptions Prescriptions: New ferrous gluconate 324 mg (38 mg iron) tablet 324 mg PO DAILY Qty: 30 0RF pantoprazole [Protonix] 40 mg tablet,delayed release (DR/EC) 40 mg PO DAILY Qty: 30 0RF Continued Trelegy Ellipta 100-62.5-25 mcg blister with device 1 inh inhalation Q24H lisinopril 20 mg Tablet 20 mg PO DAILY Qty: 30 0RF amlodipine 10 mg Tablet 10 mg PO DAILY Qty: 30 0RF albuterol sulfate 90 mcg/actuation HFA aerosol inhaler 2 puff inhalation Q6H Qty: 8.5 0RF Rx Instructions: use for the next five days, then use two puffs every six hours as needed for shortness of breath thereafter Held aspirin [Adult Low Dose Aspirin] 81 mg tablet,delayed release (DR/EC) 81 mg PO DAILY Hold Instructions: Resume on 07/01/25. Referrals / Follow Up: Freddy Edward DO [Med Staff - Active Staff, Gastroenterology] - Within 1 Month Fernanda Powell, FILTRATION OPERATOR-C [Primary Care Provider, Family Practice] - Within 1 Week Disposition Disposition (needs filled in before D/C Order can be placed): Home, Self Care Charges/Coding Visit Charges Inpatient E&M: 61403 Disch Hosp >30min
--- NOTE | 2025-06-28 13:58 | CASEMGMT ---
Patient has order for discharge. RN CM in to discuss needs at discharge. Patient denies needs or help at discharge. Patient had no further questions or concerns.
--- NOTE | 2025-06-28 14:05 | PHA.DC.COU.R ---
Pharmacy [facility] has performed discharge medication counseling for this patient. The patient was counseled on the following discharge medications and changes in medications for homegoing review. - Ferrous gluconate 324 mg tablet The Reason for Use, instructions for use, and potential side effects were reviewed for all new medications. The patient's questions regarding all of their medications were answered. The patient was able to verbally demonstrate an understanding of their discharge medications. Medications at Discharge Home Medications albuterol sulfate 90 mcg/actuation aerosol inhaler 2 puff inhalation Q6H shortness of breath or wheezing #8.5 grams 11/22/22 amlodipine 10 mg tablet 10 mg PO DAILY BLOOD PRESSURE #30 tabs 11/22/22 lisinopril 20 mg tablet 20 mg PO DAILY BLOOD PRESSURE #30 tabs 11/22/22 fluticasone fur. 100 mcg-umeclid 62.5 mcg-vilant 25 mcg inhalat.powder (Trelegy Ellipta) 1 inh inhalation Q24H SOB 06/22/25 aspirin 81 mg tablet,delayed release (Adult Low Dose Aspirin) 81 mg PO DAILY HEART 06/26/25 Held on 06/28/25. Instructions: Resume on 07/01/25. ferrous gluconate 324 mg (38 mg iron) tablet 324 mg PO DAILY #30 tabs 06/28/25 pantoprazole 40 mg tablet,delayed release (Protonix) 40 mg PO DAILY #30 tabs 06/28/25
== END 2025-06-28 14:51 | disposition home or self-care (01) | DRG 253 ==
LOC: ED 10:37 → PCU 14:13
PROVIDERS: Internal Medicine Gastroenterology; Student in an Organized Health Care Education/Training Program; Admitting Provider Family Medicine; Emergency Provider Student in an Organized Health Care Education/Training Program; PCP Nurse Practitioner Family; Visit Provider Family Medicine
PROC: 0DJD8ZZ Inspection of Lower Intestinal Tract, Via Natural or Artificial Opening Endoscopic (ICD-10-PCS; CPT 45378; principal; 2025-06-28 10:55)
DX: K55.21 Angiodysplasia of colon with hemorrhage (principal); D62 Acute posthemorrhagic anemia; J44.9 Chronic obstructive pulmonary disease, unspecified; D50.9 Iron deficiency anemia, unspecified; I10 Essential (primary) hypertension; D12.5 Benign neoplasm of sigmoid colon; K57.30 Diverticulosis of large intestine without perforation or abscess without bleeding; K21.00 Gastro-esophageal reflux disease with esophagitis, without bleeding; K29.50 Unspecified chronic gastritis without bleeding; K31.89 Other diseases of stomach and duodenum; K22.70 Barrett's esophagus without dysplasia; D72.829 Elevated white blood cell count, unspecified; F41.9 Anxiety disorder, unspecified; E27.9 Disorder of adrenal gland, unspecified; R09.02 Hypoxemia; Z79.899 Other long term (current) drug therapy; Z79.85 Long-term (current) use of injectable non-insulin antidiabetic drugs; Z79.82 Long term (current) use of aspirin; Z87.891 Personal history of nicotine dependence
CPT/HCPCS: 36415; 71275; 80048; 80076; 82607; 82728; 82746; 83540; 83550; 83605; 83880; 84484; 85025; 85610; 85730; 87040; 87631; 87633; 88305; 88342; 93005; 94640; 99285; C1889; Q9967; A4216; J2405; J2916

== ENCOUNTER → 2025-06-29 | Outpatient (CLI) | payer MEDICAID, SELFPAY ==
[2025-06-29 12:37] LABS: Hematocrit 36.4 % (40-54); Hemoglobin 11.1 g/dL (13.0-16.5); Immature Granulocytes Count 0.100 X10^3/uL (0.0-0.0); Mean Corp Hgb Conc 30.5 g/dL (32-36); Mean Corpuscular Volume 89.9 fL (80-94); Mean Platelet Vol. 9.2 fl (6.2-12.0); NRBC Flagged by Analyzer 0 % (0-5); Platelet Count 406 K/mm3 (150-450); RBC Distribution Width CV 15.4 % (11.6-14.6); RBC Distribution Width SD 50.7 fl (35.1-43.9); Red Blood Count 4.05 M/mm3 (4.6-6.2); White Blood Count 9.8 K/mm3 (4.4-11.0)
[2025-06-29 13:18] LABS: AST(SGOT) 12 U/L (<=37); Alanine Aminotransfer ALT/SGPT 10 U/L (<=46); Albumin, Serum 3.9 g/dL (3.4-4.8); Alkaline Phosphatase 46 U/L (40-129); Anion Gap 9 (5-15); BUN 9 mg/dL (4-19); BUN/Creat Ratio 11.4 RATIO (10-20); Calcium,Total 8.6 mg/dL (7.6-11.0); Carbon Dioxide 26.7 mmol/L (21.0-32.0); Chloride 98 mmol/L (98-108); Ferritin 487 ng/mL (37-417); Globulin 2.4 g/dL (2.2-4.2); Glucose 97 mg/dL (70-99); Iron 56 ug/dL (65-175); Iron Binding Capacity,Total 381 ug/dL (250-450); Iron Binding Capacity,Unsat 325 ug/dL (228-428); Potassium 4.3 mmol/L (3.3-5.1)
== END | disposition home or self-care (01) ==
PROVIDERS: Nurse Practitioner Family; PCP Nurse Practitioner Family; Referring Provider Nurse Practitioner Family; Visit Provider Nurse Practitioner Family
DX: R19.5 Other fecal abnormalities (principal); D64.9 Anemia, unspecified; R73.09 Other abnormal glucose
CPT/HCPCS: 36415; 80053; 82728; 83036; 83540; 83550; 85025